=== PATIENT | male | born 1990 | race African-American/Black ===

== ENCOUNTER → 2020-11-18 10:33 | Outpatient (BNVA) | payer OTHER, SELFPAY | PROVIDERS: PCP Internal Medicine; Visit Provider Nurse Practitioner Gerontology ==

== ENCOUNTER 2021-02-11 09:49 | Outpatient (REF) | payer OTHER, SELFPAY ==
[2021-02-13 04:25] LABS: HBS Num1 225.82 mIU/mL (0-7.99); ~Hepatitis B Surface Antibody REACTIVE (Nonreactive)
== END 2021-02-11 09:50 | disposition home or self-care (01) ==
LOC: HO.HMGCLDS 09:49
PROVIDERS: PCP Internal Medicine; Visit Provider Nurse Practitioner Gerontology
DX: Z01.84 Encounter for antibody response examination (principal)
CPT/HCPCS: 36415; 86706; 86735; 86762; 86765; 86787

== ENCOUNTER 2021-03-06 12:16 | Outpatient (REF) | payer OTHER, SELFPAY ==
[2021-03-08 21:17] LABS: TS Negative Control Passed; TS Panel A 0; TS Panel B 0; TS Positive Control Passed; TSpotTB Negative (Negative)
== END 2021-03-06 12:17 | disposition home or self-care (01) ==
LOC: HO.HMGCLDS 12:16
PROVIDERS: PCP Internal Medicine; Visit Provider Internal Medicine
DX: Z11.1 Encounter for screening for respiratory tuberculosis (principal)
CPT/HCPCS: 36415; 86481

== ENCOUNTER → 2021-05-19 10:25 | Outpatient (BNVA) | payer OTHER, SELFPAY | PROVIDERS: PCP Internal Medicine; Visit Provider Nurse Practitioner Gerontology ==

== ENCOUNTER 2021-08-29 08:57 | Outpatient (REF) | payer OTHER, SELFPAY ==
[2021-08-29 11:53] LABS: Alanine Aminotransferase 20 U/L (0-40); Albumin Level 4.3 g/dL (3.5-5.0); Alkaline Phosphatase 93 U/L (39-117); Anion Gap 12 (12-20); Aspartate Amino Transferase 18 U/L (5-37); Bilirubin Total 0.6 mg/dL (0.0-1.0); Blood Urea Nitrogen 14 mg/dL (9-16); Calcium 9.2 mg/dL (8.4-10.2); Carbon Dioxide 28 mmol/L (22-29); Chloride 106 mmol/L (96-108); Cholesterol 148 mg/dL; Estimated Glomerular Filt Rate > 60; Glucose Fasting 100 mg/dL (60-99); HDL Cholesterol 54 mg/dL; LDL Cholesterol Calculated 87 mg/dl; Sodium 142 mmol/L (135-145); Total Protein 6.9 g/dL (6.5-8.0); Triglycerides 37 mg/dL
[2021-08-29 12:10] LABS: Microalbum/Creatinine Ratio Ur 5.5 ug/mg cr
[2021-08-29 12:18] LABS: Estimated Average Glucose 189 mg/dL; Hemoglobin A1c % 8.2 %
== END 2021-08-29 08:58 | disposition home or self-care (01) ==
LOC: HO.HMGCLDS 08:57
PROVIDERS: PCP Internal Medicine; Visit Provider Nurse Practitioner Gerontology
DX: E10.65 Type 1 diabetes mellitus with hyperglycemia (principal)
CPT/HCPCS: 36415; 80053; 80061; 82043; 83036

== ENCOUNTER → 2022-02-01 13:38 | Outpatient (BNVA) | payer OTHER, SELFPAY | PROVIDERS: PCP Internal Medicine; Visit Provider Internal Medicine Endocrinology, Diabetes & Metabolism | DX: E10.65 Type 1 diabetes mellitus with hyperglycemia (principal); Z79.4 Long term (current) use of insulin; Z96.41 Presence of insulin pump (external) (internal) | CPT/HCPCS: 82947; 83036; 99202; 99214 ==

== ENCOUNTER 2022-03-13 15:12 | Outpatient (REF) | payer OTHER, SELFPAY ==
[2022-03-13 17:04] LABS: Glucose Random 99 mg/dL (60-115)
[2022-03-15 18:44] LABS: C Peptide 0.22 ng/mL (0.80-3.85)
[2022-03-21 15:18] LABS: Glutamic acid decarboxylase Ab >250 IU/mL (<5)
[2022-03-31 22:58] LABS: Islet Cell Antibody Screen POSITIVE (NEGATIVE); Islet Cell Antibody Titer 320 JDF units
== END 2022-03-13 15:13 | disposition home or self-care (01) ==
LOC: HO.HMGCLDS 15:12
PROVIDERS: PCP Internal Medicine; Visit Provider Internal Medicine Endocrinology, Diabetes & Metabolism
DX: E10.65 Type 1 diabetes mellitus with hyperglycemia (principal)
CPT/HCPCS: 36415; 82947; 84681; 86255; 86341

== ENCOUNTER 2023-02-18 12:53 | Outpatient (AMB) | payer OTHER, SELFPAY ==
--- NOTE | 2023-02-18 12:56 | A.OFFVIS_ITS ---
Intake Vital Signs 02/18/23 13:00 Height 5 ft 10 in Weight 159 lb 13.362 oz BMI 22.9 BP 102/70 Blood Pressure Location Rt brachial Position Sitting Pulse 83 Pulse Source Pulse Oximeter Intake Visit Reasons: dm Intake Note: Patient present today to follow up on Type 1 Diabetes Mellitus. Last Diabetic Eye exam: 05/22/2022 Last Podiatry Visit: Does not see a Telecommunication Lines Repairer Random Glucose: 76 mg/dl HgA1C: 8.1% Snowboard Designer Required: No Accompanied by: Self / Same As Patient Allergies N.K.D.A. Allergy (Unknown, Uncoded 02/18/23 13:01) none HPI HPI Comments History of Present Illness Details ?Patient is 32 yo male with DM type 1 diagnosed on 07/13/17.? Past medical? history: HLD Micro and macrovascular complications: no? complications Diabetes medications: Lantus 13 units, Humalog, I:C 18,? sensitivity 70, target 120, Uses chart. CGM: In the last 2 weeks average blood glucose 164 . 2% blood glucose low, 57% in target range of 70-180,32 % high and 8% very high. GMI 7.2 . A pattern shows hypoglycemia occurring primarily overnight Symptoms reported: denies? numbness, tingling, cramping in lower extremities Hypoglycemia: Rare Twice a week or less per month usually overnight . ? Feels shakey and weak when they occur. Treats with juice and crackers.? ? Hyperglycemia: denies urinary frequency, denies nocturia,denies? polydypsia Eye exam:? last 04/2022 [facility] Medical History Dyslipidemia Immunity status testing Type 1 diabetes mellitus with hyperglycemia Surgical History No history of previous surgery Family History Father Diabetes Household Members: Family Housing: House Patient Tobacco Use Status: Never used Tobacco e-Cigarette/Vaping Use: Never Used Current occupational status: other Current occupation: student Cognitive needs: No Hearing needs: No Vision needs: Yes Physical Exam Vital Signs: Last Vital Signs Pulse 83 11/27/23 13:00 BP 102/70 02/18/23 13:00 BMI result Body Mass Index 22.9 Absence of Cushingoid features. Absence of acromegalic features. Neck exam reveals nl size thyroid about 15 gms. No thyroid nodules palpable. No carotid bruits present. Lungs CTA. Heart S1 S2, Reg R/R. No M/R/ G. Skin exam reveals absence of vitiligo or acanthosis nigricans. Abdominal exam reveals Soft NT/ND with NA BS. No organomegaly present. Extrem Other: Visual exam of foot performed. No ulcerations or open lesions. No onchomycosis, no callouses.Pulses 2 + distally. Sensation intact to monofilament exam. Vib ratory sensation sensed 10 seconds in right, 10 seconds in left with 128 Hz tuning fork. He does have a small palpable soft mass in the right dorsum of the foot which appears to be either ganglia or lipoma like Results AMB Hemoglobin A1c AMB Hemoglobin A1c 8.1 % Last Edit by AILIN Diaz on 02/18/23 13:17 Results Reviewed Results Reviewed: Laboratory Last Values Glucose (Clinic) 76 mg/dL (60-115) 02/18/23 13:05 Assessment & Plan Assessment & Plan (1) Type 1 diabetes mellitus with hyperglycemia: Code(s): E10.65 - Type 1 diabetes mellitus with hyperglycemia Plan: This is a 32-year-old black male with a history of type 1 diabetes with fair glycemic control on basal-bolus insulin with no known microvascular or macrovascular complications Plan is to talk to the patient about potentially switching to insulin pump like Omnipod 5 otr Tandem T-Slim X2 with control IQ.or Ilet device. Will check lipid profile microalbumin to creatinine ratio. Will follow up with clinical systems educator to discuss pump initiation Orders: Orders AMB Hemoglobin A1c Today E10.65 - Type 1 diabetes mellitus with hyperglycemia Coding Level of Care Code Est Pt Level 4 (14669) Diagnoses Type 1 diabetes mellitus with hyperglycemia E10.65
[2023-02-18 13:00] VITALS: BP 102/70; PULSE 83; BMI 22.9
[2023-02-18 13:12] LABS: Glucose, Whole Blood 76 mg/dL (60-115)
== END 2023-02-18 13:35 | disposition home or self-care (01) ==
PROVIDERS: PCP Internal Medicine; Visit Provider Internal Medicine Endocrinology, Diabetes & Metabolism
DX: E10.65 Type 1 diabetes mellitus with hyperglycemia (principal)
CPT/HCPCS: 99214

== ENCOUNTER → 2023-02-18 12:53 | Outpatient (BNVA) | payer OTHER, SELFPAY | PROVIDERS: PCP Internal Medicine; Visit Provider Internal Medicine Endocrinology, Diabetes & Metabolism | DX: E10.65 Type 1 diabetes mellitus with hyperglycemia (principal); E78.5 Hyperlipidemia, unspecified; Z79.4 Long term (current) use of insulin; Z83.3 Family history of diabetes mellitus | CPT/HCPCS: 82947; 83036; 99212 ==

== ENCOUNTER 2023-03-01 11:00 | Outpatient (REF) | payer OTHER, SELFPAY ==
[2023-03-01 14:21] LABS: Anion Gap 9 (12-20); Blood Urea Nitrogen 15 mg/dL (9-16); Calcium 9.2 mg/dL (8.4-10.2); Carbon Dioxide 29 mmol/L (22-29); Chloride 105 mmol/L (96-108); Cholesterol 185 mg/dL (<200); Estimated Glomerular Filt Rate > 60; Glucose Random 132 mg/dL (60-115); HDL Cholesterol 59 mg/dL (>40); LDL Cholesterol Calculated 118 mg/dL (<100); Potassium 3.9 mmol/L (3.3-5.1); Sodium 139 mmol/L (135-145); Triglycerides 43 mg/dL (<150)
[2023-03-01 14:53] LABS: Creatinine Urine 419.26 mg/dL; Microalbum/Creatinine Ratio Ur 6.9 ug/mg cr (<30)
== END 2023-03-01 11:01 | disposition home or self-care (01) ==
LOC: HO.HMGCLDS 11:00
PROVIDERS: PCP Internal Medicine; Visit Provider Internal Medicine Endocrinology, Diabetes & Metabolism
DX: E10.65 Type 1 diabetes mellitus with hyperglycemia (principal)
CPT/HCPCS: 36415; 80048; 80061; 82043; 82570

== ENCOUNTER 2023-05-01 13:31 | Outpatient (AMB) | payer OTHER, SELFPAY ==
--- NOTE | 2023-05-01 13:58 | A.OFFPC_ITS ---
Vital Signs 05/01/23 13:59 Height 5 ft 10 in Weight 157 lb BMI 22.5 BP 110/80 Blood Pressure Location Rt brachial Position Sitting Pulse 62 Pulse Source Pulse Oximeter Pulse Oximetry (%) 99 Oxygen Delivery Method Room Air Intake Visit Reasons: Physical Exam Intake Note: Pt is here today for his PE Allergies N.K.D.A. Allergy (Unknown, Uncoded 03/06/24 17:32) none Medication List - Last Reconciled 03/06/24 by Demi Corona MD atorvastatin 40 mg PO DAILY blood sugar diagnostic (FreeStyle Lite Strips) 3-4 times a day glucagon 3 mg/actuation (Baqsimi) 3 mg intranasal ONCE 30 days glucose (Dex4 Glucose) 12 grams (3 x 4 gram) PO Q15M PRN insulin degludec (Tresiba FlexTouch U-200 insulin) 11 - 14 units (0.055 - 0.07 mL) subcut DAILY 30 days insulin lispro Inject up to 15 units subcutaneously as directed 5 times a day subcutaneously; lancets (FreeStyle Lancets) 5 times a day Lantus Solostar U-100 Insulin (insulin glargine) 9 - 30 units (0.09 - 0.3 mL) subcut QPM 90 days NS Tobacco use date assessed: 05/01/23 Dental Screening Dental Screen Date: 05/01/23 Did you have a dental visit in the last 12 months?: No Was dental information given to patient?: Patient has dentist HPI Physical Exam HPI Details 33 year-old male here today for physical exam. He has type 1 diabetes mellitus, and dyslipidemia, currently being followed by endocrine clinic. He was diagnosed with type 1 diabetes mellitus in 2019, has fair glycemic control with last hemoglobin A1c [facility] at [facility] at 8.1%. He is currently on Lantus and Humalog insulin time and is under discussion with steam press tender about starting insulin pump. He goes to the [facility] for his diabetes retinopathy screening, last exam was done in 04/2022 with no diabetic retinopathy seen. [facility] Medical History History of anemia Immunity status testing Dyslipidemia Type 1 diabetes mellitus with hyperglycemia Surgical History No history of previous surgery Family History Father Diabetes Social History Household Members: Family Housing: House Patient Tobacco Use Status: Never used Tobacco e-Cigarette/Vaping Use: Never Used Current occupational status: other Current occupation: student Cognitive needs: No Hearing needs: No Vision needs: Yes Questionnaire PHQ-9 Over the last 2 weeks, how often have you been bothered by any of the following problems? 1. Little interest or pleasure in doing things: not at all 2. Feeling down, depressed, or hopeless: not at all 3. Trouble falling or staying asleep, or sleeping too much: not at all 4. Feeling tired or having little energy: not at all 5. Poor appetite or overeating: not at all 6. Feeling bad about yourself - or that you are a failure or have let yourself or your family down: not at all 7. Trouble concentrating on things, such as reading the newspaper or watching television: not at all 8. Moving or speaking so slowly that other people could have noticed. Or the opposite - being so fidgety or restless that you have been moving around a lot more than usual: not at all 9. Thoughts that you would be better off or of hurting yourself in some way: not at all Total score: 0 Depression Screening Interpretation: Negative Depression Screening Done: Yes 16449 - PHQ-9 Billing: Yes Source: Developed by Drs. Niles Ambrose, Chely Plascencia, Issac Castillo and colleagues, with an educational veronica from [employer]. Thrive Questionnaire Date Thrive assessed: 05/01/23 I am a: Patient What is your living situation today?: I have a steady place to live Within the past 12 months, did the food you bought not last and you didn't have the money to get more?: Never true Within the past 12 months, did you worry whether your food would run out before you got money to buy more?: Never true Do you have trouble paying for medicines?: No Do you have trouble getting transportation to medical appointments?: No Do you have trouble paying your heating and electricity bill?: No Do you have trouble taking care of your child, family member or friend?: No Do you have trouble with day-to-day activities such as bathing, preparing meals, shopping, managing finances, etc.?: No Are you currently unemployed and looking for a job?: No Are you interested in more education?: No THRIVE Score: 0 AUDIT C Alcohol Use Questionnaire (AUDIT-C) 1. How often do you have a drink containing alcohol?: Never Total Score: 0 SIDNEY-7 AMB Questionnaire SIDNEY-7 Date SIDNEY - 7 assessed: 05/01/23 Feeling nervous, anxious, or on edge: 0 = Not at all Not being able to stop or control worryin = Not at all Worrying too much about different things: 0 = Not at all Trouble relaxin = Not at all Being so restless that it is hard to sit still: 0 = Not at all Becoming easily annoyed or irritable: 0 = Not at all Feeling afraid as if something awful might happen: 0 = Not at all Total SIDNEY-7 score (0-4 normal; 5-9 mild; 10-14 moderate; 15-21 severe): 0 Source: Developed by Drs. Niles Ambrose, Chely Plascencia, Issac Castillo and colleagues, with an educational veronica from [employer]. SIDNEY-7 Assessment Billing SIDNEY-7 Assessment Tool: SIDNEY-7 Assessment 75698 Review of Systems Const Denies fatigue, Denies headache(s), Denies weight gain and Denies weight loss Eyes Denies change in vision ENT Denies dizziness, Denies dry mouth, Denies headache(s), Denies nasal congestion, Denies disequilibrium and Denies post nasal drip Card Denies chest pain, Denies irregular heart rhythm, Denies palpitations and Denies dyspnea Resp Denies cough and Denies dyspnea GI Denies constipation, Denies heartburn and Denies diarrhea Denies dysuria and Denies urinary frequency Musc Denies muscle cramps, Denies muscle weakness, Denies numbness and Denies tin gling Skin/Breast Denies lesions and Denies rash Neuro Denies burning sensations, Denies dizziness, Denies headache(s), Denies numbness, Denies tingling, Denies paresthesias and Denies disequilibrium Psych Denies depression Endo Denies fatigue, Denies polydipsia, Denies polyuria and Denies palpitations [place]/Lymph Denies easy bruising Aller/Immun Reports no additional complaints Physical exam (Primary Care) Vital Signs: Last Vital Signs Pulse 62 05/01/23 13:59 BP 110/80 05/01/23 13:59 Pulse Ox 99 05/01/23 13:59 Oxygen Delivery Method Room Air 05/01/23 13:59 BMI result Body Mass Index 22.5 Tobacco/Smoking Status: Tobacco use Status Tobacco use date assessed 05/01/23 05/01/23 14:04 Patient Tobacco Use Status Never used Tobacco 05/01/23 13:58 e-Cigarette/Vaping Use Never Used 05/01/23 13:58 PHQ-9: PHQ-9 Score PHQ-9: Total score 0 05/01/23 14:50 Depression Screening Interpretation: Negative Thrive Assessment: Date of Thrive Assessment Date Thrive assessed 05/01/23 05/01/23 14:46 Const General: comfortable, no acute distress and alert Orientation/consciousness: patient oriented x3 HENMT Ears: external ears normal, TM's normal bilaterally and EAC's normal General nose exam: Normal external nose present and No nasal discharge present Mouth: Normal oral and palatal mucosa present, oropharynx normal and moist mucous membranes Eyes General: appearance normal, both eyes and all related structures Conjunctivae: conjunctivae normal Sclerae: sclerae normal Pupils: Equal, round and reactive pupils present EOM: EOMs intact bilaterally Neck Neck: Yes full ROM, Yes no lymphadenopathy and Yes supple Resp Effort & Inspection: normal respiratory effort and able to speak in complete sentences Auscultation: clear to auscultation bilaterally Cardio Rate: regular rate Rhythm: regular rhythm Heart sounds: S1 normal heart sound present and S2 normal heart sound present GI Palpation (GI): Soft to palpation, nontender and no masses Auscultation: normal bowel sounds Back/Spine/Pelvis Back: No back tenderness Skin General skin exam: no rashes or lesions noted Neuro General: patient oriented x3, gait normal, tone normal, moves all extremities, Normal light touch and pain sensation and no focal motor deficits Cranial nerves: Yes CN's II-XII intact bilaterally and Yes Equal, round and reactive pupils present Cognition (Neuro): normal cognition Extrem General: Yes full ROM, Yes no joint enlargement, Yes no clubbing, cyanosis or edema and Yes no calf tenderness Psych Appearance: grossly normal and well kempt Mental Status: mental status grossly normal Speech and movement: Normal speech and movement present Affect: normal affect Attitude: cooperative Thought process: Normal thought process present Thought content: Normal thought content present Office Procedures Flu Questionnaire Does the patient have a severe egg allergy?: No Does the patient have severe life threatening allergies?: No Does the patient have a fever or illness today?: No Has the patient ever had Guillain-[place] Syndrome?: No Has the patient ever had any past reaction to a flu shot?: No Immunizations flu vacc [id number] 6mos up(PF) 60 mcg(15 mcgx4)/0.5 mL IM syringe Performing Provider: Demi Corona MD Performing Location: [facility] Administered by: Di Fowler CMA on 05/01/23 14:45 Dose Route Admin Location Dispensed Lot Number Expiration Date NDC Design Specialist 0.5 mL IM Left Deltoid 0.5 mL [id number] 09/22/23 88931-705-34 [employer] VIS Given Date VIS Provided VIS Publication Date 05/01/23 Single Vaccine 20 Eligibility Eligibility Date Funding Source Not VFC Eligible 05/01/23 Private Results Reviewed Results Reviewed: Name: Conrado Rodriguez Age/Sex: 32/M : 1990 Unit#: [id number] Attend Dr: Niles Ruvalcaba MD Re03/01/23 Status: DEP REF Location: [facility] Disch: SPEC : [id number] MARCIN: 03/01/23 STATUS: COMP REQ : [id number] RECD: 03/01/23-[address]: Niles Ruvalcaba MD COMP: 03/01/23142 ENTERED: 03/01/23-[address]: Demi Corona MD ORDERED: BMP, Lipid Panel Test Result Flag Reference Sodium 139 135-145 mmol/L Potassium 3.9 3.3-5.1 mmol/L CL 105 96-108 mmol/L CO2 29 22-29 mmol/L Gap 9 L 12-20 BUN 15 9-16 mg/dL Creat 1.11 0.5-1.4 mg/dL EGFR > 60 NOTE: For -[place] individuals, multiply the result by 1.210. Chronic Kidney Disease: Estimated GFR < 60 mL/min/1.73m2 Severe Kidney Disease: Estimated GFR < 15 mL/min/1.73m2 Glucose, Random 132 H 60-115 mg/dL CA 9.2 8.4-10.2 mg/dL Triglyceride 43 <150 mg/dL Desirable Triglyceride: less than 150 mg/dL Borderline High Triglyceride 150-199 mg/dL High Triglyceride: 200-499 mg/dL Very High Triglyceride: greater than or equal to 5OO mg/dL Cholesterol 185 <200 mg/dL Desirable Cholesterol: less than 200 mg/dL Borderline High Cholesterol: 200-239 mg/dL High Cholesterol: greater than 239 mg/dL LDL Calculated 118 H <100 mg/dL Desirable LDL: less than 100 mg/dL Near Optimal/Above Optimal LDL: 110-129 mg/dL Borderline High LDL: 130-159 mg/dL High LDL: 160-189 mg/dL Very High LDL: greater than or equal to 190 mg/dL HDL 59 >40 mg/dL Desirable HDL: greater than 40 mg/dL Note: This HDL assay may give artificially low results in patients with liver disease. Name: Conrado Rodriguez Age/Sex: 32/M : 1990 Unit#: [id number] Attend Dr: Niles Ruvalcaba MD Re03/01/23 Status: DEP [facility] Disch: SPEC : [id number] MARCIN: 03/01/23 STATUS: COMP REQ : [id number] RECD: 03/01/[address]: Niles Ruvalcaba MD COMP: 03/01/231453 ENTERED: 03/01/23-[address] [facility] [address]: Demi Corona MD ORDERED: MICARU Test Result Flag Reference Creat, Ur 419.26 mg/dL Microalbumin Ur 29.0 mg/L Alb/Creat Ratio 6.9 <30 ug/mg cr Albumin/Creatinine Ratio Reference Ranges: Normal: < 30 ug/mg creatinine Microalbuminuria: 30 - 300 ug/mg creatinine Clinical Albuminuria: > 300 ug/mg creatinine Coding Level of Care Code Est Pt Prev Care 18-39y(57139) Diagnoses Annual visit for general adult medical examination with abnormal findings Z00.01 History of anemia Z86.2 Type 1 diabetes mellitus with hyperglycemia E10.65 Dyslipidemia E78.5 Additional Codes SIDNEY-7 Assessment Billing - SIDNEY-7 Assessment Tool: SIDNEY-7 Assessment 33562 ([id number])
[2023-05-01 13:59] VITALS: BP 110/80; PULSE 62; O2SAT 99; BMI 22.5
== END 2023-05-01 15:09 | disposition home or self-care (01) ==
PROVIDERS: PCP Internal Medicine; Visit Provider Internal Medicine
DX: Z00.01 Encounter for general adult medical examination with abnormal findings (principal); Z86.2 Personal history of diseases of the blood and blood-forming organs and certain disorders involving the immune mechanism; E10.65 Type 1 diabetes mellitus with hyperglycemia; E78.5 Hyperlipidemia, unspecified
CPT/HCPCS: 90471; 90686; 99499

== ENCOUNTER 2023-06-24 14:38 | Outpatient (AMB) | payer OTHER, SELFPAY ==
[2023-06-24 14:39] VITALS: BP 132/82; PULSE 106; BMI 22.5
--- NOTE | 2023-06-24 14:39 | MHC.OFFVIS ---
Intake Vital Signs 06/24/23 14:39 Height 5 ft 10 in Weight 156 lb 11.979 oz BMI 22.5 BP 132/82 Blood Pressure Location Lt brachial Position Sitting Pulse 106 H Pulse Source Pulse Oximeter Intake Visit Reasons: f/u Type 1 DM-confirmed Intake Note: Patient presents today to follow up on D1MT. Last Diabetic Eye exam:2021 Last Podiatry Visit: Doesn't have one Random Glucose: 207 mg/dl HgA1c: 7.4% Gravity Prospecting Operator Helper Required: No Accompanied by: Self / Same As Patient Allergies N.K.D.A. Allergy (Unknown, Uncoded 06/24/23 14:44) none HPI HPI Comments History of Present Illness Details ?Patient is 32 yo male with DM type 1 diagnosed on 07/13/17.? Past medical? history: HLD Micro and macrovascular complications: no? complications Diabetes medications: Lantus 13 units, Humalog, I:C 18,? sensitivity 70, target 120, Uses chart. CGM: In the last 2 weeks average blood glucose 154 . 5% blood glucose low, 62% in target range of 70-180,27 % high and 6% very high. GMI 7.0 . A pattern shows hypoglycemia occurring primarily overnight and after dinner Symptoms reported: denies? numbness, tingling, cramping in lower extremities Hypoglycemia: Rare Twice a week or less per month usually overnight . ? Feels shakey and weak when they occur. Treats with juice and crackers.? ? Hyperglycemia: denies urinary frequency, denies nocturia,denies? polydypsia Eye exam:? last visit 1 yr ago -needs to make appt REPLACED BY [facility] Medical History (Updated 05/01/23 @ 14:47 by Demi Corona MD) History of anemia Immunity status testing Dyslipidemia Type 1 diabetes mellitus with hyperglycemia Surgical History No history of previous surgery Family History Father Diabetes Social History Household Members: Family Housing: House Patient Tobacco Use Status: Never used Tobacco e-Cigarette/Vaping Use: Never Used Current occupational status: other Current occupation: student Cognitive needs: No Hearing needs: No Vision needs: Yes Physical Exam Vital Signs: Last Vital Signs Pulse 106 H 06/24/23 14:39 BP 132/82 06/24/23 14:39 BMI result Body Mass Index 22.5 Absence of Cushingoid features. Absence of acromegalic features. Neck exam reveals nl size thyroid about 15 gms. No thyroid nodules palpable. No carotid bruits present. Lungs CTA. Heart S1 S2, Reg R/R. No M/R/ G. Skin exam reveals absence of vitiligo or acanthosis nigricans. Abdominal exam reveals Soft NT/ND with NA BS. No organomegaly present. Extrem Other: Visual exam of foot performed. No ulcerations or open lesions. No onchomycosis, no callouses.Pulses 2 + distally. Sensation intact to monofilament exam. Vibratory sensation sensed 10 seconds in right, 10 seconds in left with 128 Hz tuning fork. He does have a small palpable soft mass in the right dorsum of the foot which appears to be either ganglia or lipoma like Results AMB Hemoglobin A1c AMB Hemoglobin A1c 7.4 % Last Edit by AILIN Sutherland on 06/24/23 14:58 Results Reviewed Results Reviewed: Laboratory Last Values Glucose (Clinic) 207 mg/dL (60-115) H 06/24/23 14:46 Assessment & Plan Assessment & Plan (1) Type 1 diabetes mellitus with hyperglycemia: Code(s): E10.65 - Type 1 diabetes mellitus with hyperglycemia Plan: This is a 32-year-old black male with a history of type 1 diabetes with excellent glycemic control on basal-bolus insulin with no known microvascular or macrovascular complications Plan is to talk to the patient about potentially switching to insulin pump like Omnipod 5 otr Tandem T-Slim X2 with control IQ.or Ilet device. Will follow up with hatchery helper to discuss pump initiation For now, we will decrease Lantus to 11 units and loosen insulin: Carbohydrate 1:19 before dinner. Orders: Orders AMB Hemoglobin A1c Today E10.65 - Type 1 diabetes mellitus with hyperglycemia, Z13.9 - Encounter for screening, unspecified Coding Level of Care Code Est Pt Level 4 (53573) Diagnoses Type 1 diabetes mellitus with hyperglycemia E10.65
[2023-06-24 14:50] LABS: Glucose, Whole Blood 207 mg/dL (60-115)
== END 2023-06-24 15:16 | disposition home or self-care (01) ==
PROVIDERS: PCP Internal Medicine; Visit Provider Internal Medicine Endocrinology, Diabetes & Metabolism
DX: Z13.9 Encounter for screening, unspecified (principal); E10.65 Type 1 diabetes mellitus with hyperglycemia
CPT/HCPCS: 99214

== ENCOUNTER → 2023-06-24 14:38 | Outpatient (BNVA) | payer OTHER, SELFPAY | PROVIDERS: PCP Internal Medicine; Visit Provider Internal Medicine Endocrinology, Diabetes & Metabolism | DX: E10.65 Type 1 diabetes mellitus with hyperglycemia (principal); Z79.4 Long term (current) use of insulin | CPT/HCPCS: 82947; 83036; 99212 ==

== ENCOUNTER 2023-12-25 14:39 | Outpatient (AMB) | payer OTHER, SELFPAY ==
--- NOTE | 2023-12-25 08:03 | A.OFFVIS_ITS ---
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 Allergy (Unknown, Uncoded 12/25/23 14:50) none HPI Comments Details: Patient is 33 yo male with DM type 1 diagnosed on 07/13/17.? Patient presented to the clinic with blood sugar of 54 and was treated with 3 glucose tablets and 2 small cancer elie stephanie with his blood sugar increasing to 85 Past medical? history: HLD Micro and macrovascular complications: no? complications Diabetes medications: Lantus 11-14 units, Humalog, I:C 18,? sensitivity 70, target 120, Uses chart. Dexcom average glucose: [161 ] 14 day continuous glucose monitor report reviewed TIme in ranges: Eight % very high (above 250) 27 % high ?(181-250) 62 next just feel to % in range ?(70-180] Two % low (69-55) 1 % ?very low (below 54) Interpretation [labile readings with progressive increase of sugar throughout the day and some lows ] Eye exam:? last visit 1 yr ago -needs to make appt HLD: on statin due for lipid profile No neuropathy:Symptoms reported: denies? numbness, tingling, cramping in lower extremities No nephropathy: 03/16 microalbumin 29 eGFR >60 Hypoglycemia: Twice a week . ? Feels shaky and weak when they occur. Treats with juice and crackers.? ? Hyperglycemia: denies urinary frequency, denies nocturia,denies? polydypsia Eye exam:? last visit 1 yr ago -needs to make appt [facility] Medical History History of anemia Immunity status testing Dyslipidemia Type 1 diabetes mellitus with hyperglycemia Surgical History No history of previous surgery Family History Father Diabetes Social History Household Members: Family Housing: House Patient Tobacco Use Status: Never used Tobacco e-Cigarette/Vaping Use: Never Used Current occupational status: other Current occupation: student Cognitive needs: No Hearing needs: No Vision needs: Yes Physical Exam Vital Signs: Last Vital Signs Pulse 79 12/25/23 14:51 BP 120/78 12/25/23 14:51 BMI result Body Mass Index 22.1 Const Other: Absence of Cushingoid features. Absence of acromegalic features. Neck exam reveals nl size thyroid about 15 gms. No thyroid nodules palpable. No carotid bruits present. Lungs CTA. Heart S1 S2, Reg R/R. No M/R G. Skin exam reveals absence of vitiligo or acanthosis nigricans. No edema Visual exam of foot performed. No ulcerations or open lesions. No inter digit maceration or fissuring. No onychomycosis, no callouses. Sensation intact to monofilament exam. Vibratory sensation is normal with 128 Hz tuning fork. Results AMB Hemoglobin A1c AMB Hemoglobin A1c 8.0 % Last Edit by AILIN Yang on 12/25/23 15:18 Results Reviewed Results Reviewed: Laboratory Last Values Glucose (Clinic) 74 mg/dL (60-115) 12/25/23 15:49 Hgb A1c (Clinic) 8.0 % (4.0-6.0) H 12/25/23 14:51 Laboratory Tests 03/14/18 02/18/23 03/01/23 10:21 13:10 11:04 Plt Count 231 Potassium 3.9 Creatinine 1.11 Estimated GFR > 60 Hgb A1c (Clinic) 8.1 H Calcium 9.2 Triglycerides 43 Cholesterol 185 LDL Cholesterol, Calc 118 H HDL Cholesterol 59 Urine Creatinine Urine Microalbumin Microalb/Creat Ratio 03/01/23 06/24/23 11:10 14:49 Plt Count Potassium Creatinine Estimated GFR Hgb A1c (Clinic) 7.4 H Calcium Triglycerides Cholesterol LDL Cholesterol, Calc HDL Cholesterol Urine Creatinine 419.26 Urine Microalbumin 29.0 Microalb/Creat Ratio 6.9 Assessment & Plan Assessment & Plan (1) Type 1 diabetes mellitus with hyperglycemia: Code(s): E10.65 - Type 1 diabetes mellitus with hyperglycemia Category: Medical Plan: This is a 32-year-old black male with a history of type 1 diabetes with lows and A 1C above target at 8%. Needs better control on basal-bolus insulin. no known microvascular or macrovascular complications he will continue using Dexcom in the same about of pre meal insulin based on his insulin to carbohydrate ratio and correction factor. We will change his insulin to Tresiba as I believe this will give him a more even baseline of insulin and allow us to better adjust his insulin to achieve target at 7%n Orders: Orders AMB Hemoglobin A1c Today E10.65 - Type 1 diabetes mellitus with hyperglycemia Basic Metabolic Panel 2 Weeks E10.65 - Type 1 diabetes mellitus with hyperglycemia Lipid Panel 2 Weeks E10.65 - Type 1 diabetes mellitus with hyperglycemia Microalbumin, Random (w Creat) 2 Weeks E10.65 - Type 1 diabetes mellitus with hyperglycemia Creatinine Urine 2 Weeks E10.65 - Type 1 diabetes mellitus with hyperglycemia Medications: New insulin degludec (Tresiba FlexTouch U-200 insulin) 11 - 14 units (0.055 - 0.07 mL) subcut DAILY 30 days 3 mL 0RF Coding Level of Care Code Est Pt Level 5 (98462) Complex EM visit Add On G2211 Diagnoses Type 1 diabetes mellitus with hyperglycemia E10.65 Time Spent (min) 45 Comment Time spent reviewing labs/provider notes, face to face, chart doc
[2023-12-25 14:51] VITALS: BP 120/78; PULSE 79; BMI 22.1
[2023-12-25 15:12] LABS: Glucose, Whole Blood 50 mg/dL (60-115)
[2023-12-25 15:56] LABS: Glucose, Whole Blood 74 mg/dL (60-115)
[2023-12-26 07:28] LABS: Glucose, Whole Blood 85 mg/dL (60-115)
== END 2023-12-25 16:04 | disposition home or self-care (01) ==
LOC: HO.ENCR 14:39
PROVIDERS: PCP Internal Medicine; Visit Provider Nurse Practitioner Adult Health
DX: E10.65 Type 1 diabetes mellitus with hyperglycemia (principal)
CPT/HCPCS: 99215; G2211

== ENCOUNTER → 2023-12-25 14:39 | Outpatient (BNVA) | payer OTHER, SELFPAY | PROVIDERS: PCP Internal Medicine; Visit Provider Nurse Practitioner Adult Health | DX: E10.65 Type 1 diabetes mellitus with hyperglycemia (principal); Z79.4 Long term (current) use of insulin | CPT/HCPCS: 82947; 83036; 99212 ==

== ENCOUNTER 2024-03-19 15:14 | Outpatient (AMB) | payer OTHER, SELFPAY ==
--- NOTE | 2024-03-19 15:20 | A.OFFPC_ITS ---
Vital Signs 03/19/24 15:21 Height 5 ft 10 in Weight 156 lb BMI 22.4 BP 116/72 Blood Pressure Location Lt brachial Position Sitting Pulse 72 Pulse Source Pulse Oximeter Pulse Oximetry (%) 99 Oxygen Delivery Method Room Air Intake Visit Reasons: Cough Follow-up Intake Note: Pt is here today c/o dry cough Allergies N.K.D.A. Allergy (Unknown, Uncoded 03/06/24 17:32) none Medication List - Last Reconciled 03/19/24 by Demi Corona MD atorvastatin 40 mg PO DAILY blood sugar diagnostic (FreeStyle Lite Strips) 3-4 times a day glucagon 3 mg/actuation (Baqsimi) 3 mg intranasal ONCE 30 days glucose (Dex4 Glucose) 12 grams (3 x 4 gram) PO Q15M PRN insulin degludec (Tresiba FlexTouch U-200 insulin) 11 - 14 units (0.055 - 0.07 mL) subcut DAILY 30 days insulin lispro Inject up to 15 units subcutaneously as directed 5 times a day subcutaneously; lancets (FreeStyle Lancets) 5 times a day Tobacco use date assessed: 03/19/24 Dental Screening Dental Screen Date: 05/01/23 HPI Cough Follow-up HPI Details - The patient is a 33-year-old male pres enting with chronic cough; onset approximately two months ago - Cough is dry, mostly non-productive wi th occasional nasal congestion; no fever, wheezing, or runny nose - Cough is intermittent, more frequently occurs at night while lying down - No significant escalation in symptoms; patient suspects allergies as a potential cause - Patient manages Type 1 diabetes with i nsulin therapy; transitioned from Lantus to Tresiba, followed at [facility] endocrine clinic - Reports recent anxiety, particularly r elated to stress of academic testing - Occasional episodes of hypoglycemia no bonnie with associated anxiety-like symptoms PFSH Medical History History of anemia Immunity status testing Dyslipidemia Type 1 diabetes mellitus with hyperglycemia Surgical History No history of previous surgery Family History Father Diabetes Social History Household Members: Family Housing: House Patient Tobacco Use Status: Never used Tobacco e-Cigarette/Vaping Use: Never Used Current occupational status: other Current occupation: student Cognitive needs: No Hearing needs: No Vision needs: Yes Questionnaire PHQ-9 Over the last 2 weeks, how often have you been bothered by any of the following problems? 1. Little interest or pleasure in doing things: not at all 2. Feeling down, depressed, or hopeless: not at all 3. Trouble falling or staying asleep, or sleeping too much: not at all 4. Feeling tired or having little energy: not at all 5. Poor appetite or overeating: not at all 6. Feeling bad about yourself - or that you are a failure or have let yourself or your family down: not at all 7. Trouble concentrating on things, such as reading the newspaper or watching television: not at all 8. Moving or speaking so slowly that other people could have noticed. Or the opposite - being so fidgety or restless that you have been moving around a lot more than usual: not at all 9. Thoughts that you would be better off or of hurting yourself in some way: not at all Total score: 0 Depression Screening Interpretation: Negative Depression Screening Done: Yes 36034 - PHQ-9 Billing: Yes Source: Developed by Drs. Niles Ambrose, Chely Plascencia, Issac Castillo and colleagues, with an educational veronica from [employer]. Thrive Questionnaire Date Thrive assessed: 05/01/23 I am a: Patient What is your living situation today?: I have a steady place to live Within the past 12 months, did the food you bought not last and you didn't have the money to get more?: Never true Within the past 12 months, did you worry whether your food would run out before you got money to buy more?: Never true Do you have trouble paying for medicines?: No Do you have trouble getting transportation to medical appointments?: No Do you have trouble paying your heating and electricity bill?: No Do you have trouble taking care of your child, family member or friend?: No Do you have trouble with day-to-day activities such as bathing, preparing meals, shopping, managing finances, etc.?: No Are you currently unemployed and looking for a job?: I choose not to answer this question Are you interested in more education?: I choose not to answer this question Please select the resources that you would like help with: None Currently or been in a relationship where the following occur: No concerns reported THRIVE Score: 0 AUDIT C Alcohol Use Questionnaire (AUDIT-C) 1. How often do you have a drink containing alcohol?: Never Total Score: 0 SIDNEY-7 AMB Questionnaire SIDNEY-7 Date SIDNEY - 7 assessed: 03/19/24 Feeling nervous, anxious, or on edge: 1 = Several days Not being able to stop or control worryin = Not at all Worrying too much about different things: 1 = Several days Trouble relaxin = Several days Being so restless that it is hard to sit still: 0 = Not at all Becoming easily annoyed or irritable: 0 = Not at all Feeling afraid as if something awful might happen: 0 = Not at all Total SIDNEY-7 score (0-4 normal; 5-9 mild; 10-14 moderate; 15-21 severe): 3 Source: Developed by Drs. Niles Ambrose, Chely Plascencia, Issac Castillo and colleagues, with an educational veronica from [employer]. SIDNEY-7 Assessment Billing SIDNEY-7 Assessment Tool: SIDNEY-7 Assessment 89377 Review of Systems Const Denies fatigue, Denies headache(s), Denies weight gain and Denies weight loss Eyes Denies change in vision ENT Denies dizziness, Denies dry mouth, Denies headache(s), Reports nasal congestion, Denies disequilibrium, Reports post nasal drip, Denies sinus pain, Denies sinus pressure and Denies sore throat Card Denies chest pain, Denies irregular heart rhythm and Denies palpitations Resp Denies cough GI Denies constipation, Denies heartburn and Denies diarrhea Denies dysuria and Denies urinary frequency Musc Denies muscle cramps, Denies muscle weakness, Denies numbness and Denies tingling Skin/Breast Denies lesions and Denies rash Neuro Denies burning sensations, Denies dizziness, Denies headache(s), Denies numbness, Denies tingling, Denies paresthesias and Denies disequilibrium Psych Reports as per HPI and Denies depression Endo Denies fatigue, Denies polydipsia, Denies polyuria and Denies palpitations [place]/Lymph Denies easy bruising Aller/Immun Reports no additional complaints Physical exam (Primary Care) Vital Signs: Last Vital Signs Pulse 72 03/19/24 15:21 BP 116/72 03/19/24 15:21 Pulse Ox 99 03/19/24 15:21 Oxygen Delivery Method Room Air 03/19/24 15:21 BMI result Body Mass Index 22.4 Tobacco/Smoking Status: Tobacco use Status Tobacco use date assessed 03/19/24 03/19/24 15:24 Patient Tobacco Use Status Never used Tobacco 03/19/24 15:24 e-Cigarette/Vaping Use Never Used 03/19/24 15:24 PHQ-9: PHQ-9 Score PHQ-9: Total score 0 03/19/24 15:49 Depression Screening Interpretation: Negative Thrive Assessment: Date of Thrive Assessment Date Thrive assessed 05/01/23 03/19/24 15:24 Currently or been in a relationship where the following occur: No concerns reported Const General: comfortable, no acute distress and alert Orientation/consciousness: patient oriented x3 HENMT Ears: external ears normal, TM's normal bilaterally and EAC's normal General nose exam: Normal external nose present and No nasal discharge present Mouth: Normal oral and palatal mucosa present, oropharynx normal and moist mucous membranes Eyes General: appearance normal, both eyes and all related structures Neck Neck: Yes full ROM, Yes no lymphadenopathy and Yes supple Resp Effort & Inspection: normal respiratory effort and able to speak in complete sentences Auscultation: clear to auscultation bilaterally Cardio Rate: regular rate Rhythm: regular rhythm Heart sounds: S1 normal heart sound present and S2 normal heart sound present GI Palpation (GI): Soft to palpation, nontender and no masses Auscultation: normal bowel sounds Back/Spine/Pelvis Back: No back tenderness Skin General skin exam: no rashes or lesions noted Neuro General: patient oriented x3, gait normal, tone normal, moves all extremities, Normal light touch and pain sensation and no focal motor deficits Cranial nerves: Yes CN's II-XII intact bilaterally Cognition (Neuro): normal cognition Extrem General: Yes full ROM, Yes no joint enlargement, Yes no clubbing, cyanosis or edema and Yes no calf tenderness Psych Appearance: grossly normal and well kempt Mental Status: mental status grossly normal Speech and movement: Normal speech and movement present Affect: normal affect Attitude: cooperative Thought process: Normal thought process present Thought content: Normal thought content present Office Procedures Flu Questionnaire Does the patient have a severe egg allergy?: No Does the patient have severe life threatening allergies?: No Does the patient have a fever or illness today?: No Has the patient ever had Guillain-[place] Syndrome?: No Has the patient ever had any past reaction to a flu shot?: No Immunizations Fluarix Triv [id number] (PF) 45 mcg (15 mcg x 3)/0.5 mL IM syringe Performing Provider: Demi Corona MD Performing Location: [facility] Administered by: Di Fowler CMA on 03/19/24 15:58 Dose Route Admin Location Dispensed Lot Number Expiration Date NDC Drafter Tool Design 0.5 mL IM Left Deltoid 0.5 mL [id number] 03/19/24 [id number] [employer] VIS Given Date VIS Provided VIS Publication Date 03/19/24 Single Vaccine 20 Eligibility Eligibility Date Funding Source Not [facility] Eligible 03/19/24 Private Coding Level of Care Code Est Pt Level 4 (46045) Diagnoses Generalized anxiety disorder F41.1 Cough R05.9 Needs flu shot Z23 Additional Codes SIDNEY-7 Assessment Billing - SIDNEY-7 Assessment Tool: SIDNEY-7 Assessment 49842 ([id number]) PHQ-9 - 37307 - PHQ-9 Billing: Yes ([id number]) Assessment & Plan Assessment & Plan (1) Generalized anxiety disorder: Code(s): F41.1 - Generalized anxiety disorder Category: Medical (2) Cough: Code(s): R05.9 - Cough, unspecified Category: Medical (3) Needs flu shot: Code(s): Z23 - Encounter for immunization Plan Today, I discussed with the patient the likelihood of allergic rhinitis as the cause of his chronic cough and recommended starting on loratadine daily. We also discussed potential anxiety management with escitalopram , will start on 5 mg once a day , emphasizing the importance of managing stressors to support overall health. The patient acknowledged that fluctuations in blood sugar levels could contribute to perceived anxiety symptoms, and agreed to track these occurrences. Vaccine updates were addressed, confirming the need for a flu shot and COVID booster with a recommended week interval to minimize reactions.Flu shot given today. I also gave guidance on monitoring symptoms and responded to questions about the use and benefits of prescribed treatments. Follow-up has been planned to assess treatment efficacy, with a telehealth option scheduled 4 weeks after starting escitalopram . Orders: Orders Influenza [id number] Immunization 03/19/24 Z23 - Encounter for immunization Medications: New escitalopram oxalate 5 mg PO DAILY 30 tabs 0RF loratadine (Allergy Relief (loratadine)) 10 mg PO DAILY 30 tabs 0RF
[2024-03-19 15:21] VITALS: BP 116/72; PULSE 72; O2SAT 99; BMI 22.4
== END 2024-03-19 15:58 | disposition home or self-care (01) ==
PROVIDERS: PCP Internal Medicine; Visit Provider Internal Medicine
DX: F41.1 Generalized anxiety disorder (principal); R05.9 Cough, unspecified; Z23 Encounter for immunization

== ENCOUNTER → 2024-03-19 15:14 | Outpatient (BNVA) | payer OTHER, SELFPAY | PROVIDERS: PCP Internal Medicine; Visit Provider Internal Medicine | DX: R05.3 Chronic cough (principal); E16.2 Hypoglycemia, unspecified; F41.1 Generalized anxiety disorder; Z23 Encounter for immunization | CPT/HCPCS: 90471; 90656; 96127; 99212 ==

== ENCOUNTER 2024-04-24 08:03 | Outpatient (AMB) | payer OTHER, SELFPAY ==
--- NOTE | 2024-04-24 08:01 | MHC.PC.OV ---
Intake Visit Reasons: Depression & Anxiety iphone [phone] Allergies N.K.D.A. Allergy (Unknown, Uncoded 04/24/24 08:21) none Medication List - Last Reconciled 04/24/24 by Demi Corona MD atorvastatin 40 mg PO DAILY blood sugar diagnostic (FreeStyle Lite Strips) 3-4 times a day escitalopram oxalate 5 mg PO DAILY glucagon 3 mg/actuation (Baqsimi) 3 mg intranasal ONCE 30 days glucose (Dex4 Glucose) 12 grams (3 x 4 gram) PO Q15M PRN insulin degludec (Tresiba FlexTouch U-200 insulin) 11 - 14 units (0.055 - 0.07 mL) subcut DAILY 30 days insulin lispro Inject up to 15 units subcutaneously as directed 5 times a day subcutaneously; lancets (FreeStyle Lancets) 5 times a day loratadine (Allergy Relief (loratadine)) 10 mg PO DAILY Tobacco use date assessed: 04/24/24 Dental Screening Dental Screen Date: 04/24/24 Did you have a dental visit in the last 12 months?: No Did you have a dental problem in the last 6 months where you did not have access to dental care?: No Was dental information given to patient?: Patient has dentist HPI Depression & Anxiety iphone [phone] HPI Details 33-year-old male with type 1 diabetes mellitus currently followed by endocrine clinic, here today for follow-up on his anxiety disorder. Denies any depressive symptoms. Currently taking escitalopram 5 mg 1 tablet daily which she states has been helping. Not seeing any therapist, does not feel the need for one at present. Tolerating escitalopram with no adverse reactions reported. [facility] Medical History History of anemia Dyslipidemia Type 1 diabetes mellitus with hyperglycemia Surgical History No history of previous surgery Family History Father Diabetes Social History Household Members: Family Housing: House Patient Tobacco Use Status: Never used Tobacco e-Cigarette/Vaping Use: Never Used Current occupational status: other Current occupation: student Cognitive needs: No Hearing needs: No Vision needs: Yes Questionnaire PHQ-9 Over the last 2 weeks, how often have you been bothered by any of the following problems? 1. Little interest or pleasure in doing things: not at all 2. Feeling down, depressed, or hopeless: not at all 3. Trouble falling or staying asleep, or sleeping too much: not at all 4. Feeling tired or having little energy: not at all 5. Poor appetite or overeating: not at all 6. Feeling bad about yourself - or that you are a failure or have let yourself or your family down: not at all 7. Trouble concentrating on things, such as reading the newspaper or watching television: not at all 8. Moving or speaking so slowly that other people could have noticed. Or the opposite - being so fidgety or restless that you have been moving around a lot more than usual: not at all 9. Thoughts that you would be better off or of hurting yourself in some way: not at all Total score: 0 Depression Screening Interpretation: Negative Depression Screening Done: Yes 80502 - PHQ-9 Billing: Yes Source: Developed by Drs. Niles Ambrose, Chely Plascencia, Issac Castillo and colleagues, with an educational veronica from [employer]. Thrive Questionnaire Date Thrive assessed: 04/24/24 I am a: Patient What is your living situation today?: I have a steady place to live Within the past 12 months, did the food you bought not last and you didn't have the money to get more?: Never true Within the past 12 months, did you worry whether your food would run out before you got money to buy more?: Never true Do you have trouble paying for medicines?: No Do you have trouble getting transportation to medical appointments?: No Do you have trouble paying your heating and electricity bill?: No Do you have trouble taking care of your child, family member or friend?: No Do you have trouble with day-to-day activities such as bathing, preparing meals, shopping, managing finances, etc.?: No Are you currently unemployed and looking for a job?: No Are you interested in more education?: No THRIVE Score: 0 AUDIT C Alcohol Use Questionnaire (AUDIT-C) 1. How often do you have a drink containing alcohol?: Monthly or less 2. How many drinks containing alcohol do you have on a typical day when you are drinking?: 1 or 2 3. How often do you have six or more drinks on one occasion?: Never Total Score: 1 SIDNEY-7 AMB Questionnaire SIDNEY-7 Date SIDNEY - 7 assessed: 04/24/24 Feeling nervous, anxious, or on edge: 0 = Not at all Not being able to stop or control worryin = Not at all Worrying too much about different things: 0 = Not at all Trouble relaxin = Not at all Being so restless that it is hard to sit still: 0 = Not at all Becoming easily annoyed or irritable: 0 = Not at all Feeling afraid as if something awful might happen: 0 = Not at all Total SIDNEY-7 score (0-4 normal; 5-9 mild; 10-14 moderate; 15-21 severe): 0 Source: Developed by Drs. Niles Ambrose, Chely Plascencia, Issac Castillo and colleagues, with an educational veronica from [employer]. SIDNEY-7 Assessment Billing SIDNEY-7 Assessment Tool: SIDNEY-7 Assessment 27639 Review of Systems Const Denies fatigue Card Denies chest pain, Denies irregular heart rhythm and Denies palpitations Resp Denies cough GI Denies constipation, Denies heartburn and Denies diarrhea Denies dysuria and Denies urinary frequency Musc Denies muscle cramps, Denies muscle weakness, Denies numbness and Denies tingling Neuro Denies burning sensations, Denies numbness, Denies tingling and Denies paresthesias Psych Reports no additional complaints Endo Denies fatigue, Denies polydipsia, Denies polyuria and Denies palpitations Physical exam (Primary Care) Tobacco/Smoking Status: Tobacco use Status Tobacco use date assessed 04/24/24 04/24/24 08:03 Patient Tobacco Use Status Never used Tobacco 04/24/24 08:03 e-Cigarette/Vaping Use Never Used 04/24/24 08:03 PHQ-9: PHQ-9 Score PHQ-9: Total score 0 04/24/24 08:24 Depression Screening Interpretation: Negative Thrive Assessment: Date of Thrive Assessment Date Thrive assessed 04/24/24 04/24/24 08:03 Telehealth Telehealth Telehealth Platform: [facility] Location of provider rendering services: practice address Location of patient: address on file Patient Identification confirmed using: Name, : Yes Telehealth method: video Patient verbally consented to treatment: Yes Patient verbally consented to billing insurance company: Yes Patient informed of any privacy concerns related to visit: Yes Minutes spent on Phone/Video with Pt.: 15 Coding Level of Care Code Tele Est Pt Level 3 (57700) Diagnoses Generalized anxiety disorder F41.1 Additional Codes PHQ-9 - 95294 - PHQ-9 Billing: Yes ([id number]) SIDNEY-7 Assessment Billing - SIDNEY-7 Assessment Tool: SIDNEY-7 Assessment 80389 ([id number]) Assessment & Plan Assessment & Plan (1) Generalized anxiety disorder: Code(s): F41.1 - Generalized anxiety disorder Category: Medical Plan: Currently stable controlled on escitalopram 5 mg per tablet taken once a day, will continue on present dose. Patient declines need to be seen by a therapist. Will see him for his physical as scheduled on 05/07/2024, reminded patient to get his fasting labs done Medications: Refilled escitalopram oxalate 5 mg PO DAILY 30 tabs 5RF
--- OUTSIDE RECORDS SUMMARY | 2024-04-24 08:05 | XMS_ITS | Encounter Summary ---
Author Organization [facility] Address [address] [place] [address] Phone Care Team Providers Care Reference Assistant Name Role Phone Niles Goldsmith Primary Care Provider [phone] Encounter Details Date Type Department Care Team (Late st Contact Info) Description 11/13/2010 Documentation [facility] [place] Family Medicine [address] [place], [place] [phone] Family Medicine, Physician [address] [place] [address] Social History Tobacco Use Types Packs/Day Years Used Date Smoking Tobacco: Never Assessed Sex and Gender Information Value Date Recorded Sex Assigned at Not on file Legal Sex Male 4:51 PM EDT Gender Identity Not on file Sexual Orientation Not on file documented as of this encounter Plan of Treatment Not on file documented as of this encounter Visit Diagnoses Not on filedocumented in this encounter Care Teams Reference Assistant Relationship Specialty Start Date End Date Niles Goldsmith [address] [place] [address] PCP - General 11/02/16 documented as of this encounter
--- OUTSIDE RECORDS SUMMARY | 2024-04-24 08:05 | XMS_ITS | Encounter Summary ---
Author Organization [facility] Address [address] [place] [address] Phone Care Team Providers Care Deer Farmer Name Role Phone Niles Golsdmith Primary Care Provider [phone] Encounter Details Date Type Department Care Team (Late st Contact Info) Description 11/13/2010 Documentation [facility] [place] [address] [place], [place] [phone] Family Medicine, Physician [address] [place] [address] Social History Tobacco Use Types Packs/Day Years [...] on filedocumented in this encounter Care Teams Deer Farmer Relationship Specialty Start Date End Date Niles Goldsmith [address] [place] [address] PCP - General 11/02/16 documented as of this encounter
--- OUTSIDE RECORDS SUMMARY | 2024-04-24 08:05 | XMS_ITS | Encounter Summary ---
Author Organization [facility] Address [address] [place] [address] Phone Care Team Providers Care Security Sales Manager Name Role Phone Niles Goldsmith Primary Care Provider [phone] Encounter Details Date Type Department Care Team (Late st Contact Info) Description 11/08/2016 Conversion Encounter [facility] [address] [place] [address] Social History Tobacco Use Types Packs/Day Years [...] on filedocumented in this encounter Care Teams Security Sales Manager Relationship Specialty Start Date End Date Niles Goldsmith [address] [place] [address] PCP - General 11/02/16 documented as of this encounter
--- OUTSIDE RECORDS SUMMARY | 2024-04-24 08:05 | XMS_ITS | Encounter Summary ---
Author Organization [facility] Address [address] [place] [address] Phone Care Team Providers Care Veterinary Medicine Scientist Name Role Phone Niles Goldsmith Primary Care Provider [phone] Encounter Details Date Type Department Care Team (Late st Contact Info) Description 11/14/2010 Documentation [facility] [place] [address] [place], [place] [phone] Family Medicine, Physician [address] [place] [address] Social History Tobacco Use Types Packs/Day Years [...] on filedocumented in this encounter Care Teams Veterinary Medicine Scientist Relationship Specialty Start Date End Date Nilse Goldsmith [address] [place] [address] PCP - General 11/02/16 documented as of this encounter
--- OUTSIDE RECORDS SUMMARY | 2024-04-24 08:05 | XMS_ITS | Clinical Summary ---
Author Organization [facility] Address [address] [place] [address] Phone Care Team Providers Care Telegraph Office Telephone Clerk Name Role Phone Niles Goldsmith Primary Care Provider [phone] Immunizations Name Administration Dates Next Due DTP 06/30/1992, 2,04/27/1991,02/23 DTaP 5 11/11/1995 Hep B, ped/adol 08/21/1995,01/16/1995,12/17/1994 Hib (PRP-T) 06/30/1992, 2,04/27/1991,02/23 Influenza, intranasal, trivalent 11/10/2010 MMR 11/11/1995,06/30/1992 Meningococcal Conj (Menactra) MCV4P 08/30/2005 OPV 11/11/1995, 3,04/27/1991,02/23 Td (adult) (MBL), 2 Lf tetan us toxoid, PF, adsorbed 11/12/2002 Tdap 07/15/2008 Family History Relation Name Status Comments Father Alive Father: Alive a nd well Mother Alive Mother: Alive a nd well Other Family history of Diabetes mellitus Sister 1 Alive Sister: Alive a nd well, Alive and well Sister 2 Alive Sister: Alive a nd well, Alive and well Social History Tobacco Use Types Packs/Day Years Used Date Smoking Tobacco: Never Assessed Sex and Gender Information Value Date Recorded Sex Assigned at Not on file Legal Sex Male 4:51 PM EDT Gender Identity Not on file Sexual Orientation Not on file Last Filed Vital Signs Vital Sign Reading Time Taken Comments Blood Pressure 116/72 11/10/2010 12:00 AM EDT Pulse - - Temperature 35.3 ??C (95.5 ??F) 10/12/2010 12:00 AM E DT Respiratory Rate - - Oxygen Saturation - - Inhaled Oxygen Concentration - - Weight 59.9 kg (132 lb) 11/10/2010 12:00 AM EDT Height 175.3 cm (5' 9 ) 11/10/2010 12:00 AM EDT Body Mass Index 19.49 11/10/2010 12:00 AM EDT Plan of Treatment Health Maintenance Due Date Last Done Comments Consider Men B Vaccine (1 of 2 - Bexsero 2-dose series) 2006 Varicella Vaccines (1 of 2 - 13+ 2-dose series) 12/08/2010 DTaP,Tdap,and Td Vaccines (7 - Td or Tdap) 07/15/2018 07/15/2008, 11/12/2002, 11/11/1995, Additional history exists Influenza Vaccines (#1) 2023 11/10/2010 COVID-19 Vaccine ( season) 2023 HIB Vaccines Completed 06/30/1992, 06/1991, 04/27/1991, Additional history exists Hepatitis B Vaccines Completed 08/21/1995, 01/16/1995, 12/17/1994 IPV Vaccines Completed 11/11/1995, 10/1992, 04/27/1991, Additional history exists MMR Vaccines Completed 11/11/1995, 06/30/1992 Meningococcal Vaccine Aged Out 08/30/2005 No jesus urvashi eligible based on patient's age to complete this topic HPV Vaccines Aged Out No longer eligi ble based on patient's age to complete this topic Hepatitis A Vaccines Aged Out No long er eligible based on patient's age to complete this topic Men B Vaccine Aged Out No longer elig ible based on patient's age to complete this topic Pneumococcal Vaccine Aged Out No long er eligible based on patient's age to complete this topic Care Teams Telegraph Office Telephone Clerk Relationship Specialty Start Date End Date Niles Goldsmith [address] [place] [address] PCP - General 11/02/16
--- OUTSIDE RECORDS SUMMARY | 2024-04-24 08:05 | XMS_ITS | Encounter Summary ---
Author Organization [facility] Address [address] [place] [address] Phone Care Team Providers Care Director Hris Name Role Phone Niles Goldsmith Primary Care Provider [phone] Encounter Details Date Type Department Care Team (Late st Contact Info) Description 11/13/2010 Documentation [place] Family Medicine [address] [place], [place] [phone] Family Medicine, Physician [address] [place] [address] Social History Tobacco Use Types Packs/Day Years [...] on filedocumented in this encounter Care Teams Director Hris Relationship Specialty Start Date End Date Niles Goldsmith [address] [place] [address] PCP - General 11/02/16 documented as of this encounter
== END 2024-04-24 08:33 | disposition home or self-care (01) ==
LOC: HO.HMCC 08:03
PROVIDERS: PCP Internal Medicine; Visit Provider Internal Medicine
DX: F41.1 Generalized anxiety disorder (principal)

== ENCOUNTER → 2024-04-24 08:03 | Outpatient (BNVA) | payer OTHER, SELFPAY | PROVIDERS: PCP Internal Medicine; Visit Provider Internal Medicine | DX: F41.1 Generalized anxiety disorder (principal) | CPT/HCPCS: 96127 ==

== ENCOUNTER 2024-05-14 14:03 | Outpatient (AMB) | payer OTHER, SELFPAY ==
--- NOTE | 2024-05-14 08:24 | A.OFFVIS_ITS ---
Vital Signs 05/14/24 14:08 Height 5 ft 10 in Weight 167 lb 8.821 oz BMI 24.0 BP 104/76 Blood Pressure Location Rt brachial Position Sitting Pulse 97 Pulse Source Pulse Oximeter Pulse Oximetry (%) 100 Oxygen Delivery Method Room Air Intake Visit Reasons: T1DM Intake Note: Patient presents today for a follow-up on Type 1 Diabetes Mellitus: Last Diabetic eye exam was on: DUE Last Podiatry exam was on: Does not see a Stone Driller Helper Most recent HbA1c: 7.9%, 05/14/2024 Random Glucose- 116 mg/dL, Today Chiller Tender Required: No Accompanied by: Self / Same As Patient Allergies N.K.D.A. Allergy (Unknown, Uncoded 05/14/24 14:08) none Medication List - Last Reconciled 05/14/24 by Jaylyn Lopez NP atorvastatin 40 mg PO DAILY blood sugar diagnostic (FreeStyle Lite Strips) 3-4 times a day escitalopram oxalate 5 mg PO DAILY glucagon 3 mg/actuation (Baqsimi) 3 mg intranasal ONCE 30 days glucose (Dex4 Glucose) 12 grams (3 x 4 gram) PO Q15M PRN insulin degludec (Tresiba FlexTouch U-200 insulin) 11 - 14 units (0.055 - 0.07 mL) subcut DAILY 30 days insulin lispro Inject up to 15 units subcutaneously as directed 5 times a day subcutaneously; lancets (FreeStyle Lancets) 5 times a day loratadine (Allergy Relief (loratadine)) 10 mg PO DAILY HPI Comments Details: Patient is 33 yo male with DM type 1 diagnosed on 07/13/17.? Hemoglobin A1c 05/14/2024 % He was last seen 12/25/23 with an A1c of 8% at which time his basal insulin was changed to Tresiba due to hypoglycemia and failure to achieve target A1C. Type 1 diabetes confirmed 2021 insulin antibody titer 320, SIDNEY greater than 250 Micro and macrovascular complications: no? complications Diabetes medications: Tresiba 14-16 units was using 12-14 in the past Humalog, I:C 18,? sensitivity 70, target 130, hasn't been using emmanuel humalog when self calculating uses 1:20 for ease of calculation range 3-4 units small meal avg 10 units 16units larger meal and higher sugars Dexcom average glucose: [ ] 14 day continuous glucose monitor report reviewed Glucose Managment indicator [ ] % Days with CGM data [ ] % TIme in ranges: [ ] % very high (above 250) [ ] % high ?(181-250) [ ] % in range ?(70-180] [ ] % low (69-55) [ ] % ?very low (below 54) [ ] Standard Deviation Interpretation [ ] Eye exam:? last exam has appt scheduled in July 2024 HLD: on statin due for lipid profile No neuropathy:Symptoms reported: denies? numbness, tingling, cramping in lower extremities No nephropathy: 03/16 microalbumin 29 eGFR >60 Hypoglycemia: some in the am when he takes extra Tresiba? Feels shaky and weak when they occur. Treats with juice and crackers.? ? Hyperglycemia: denies urinary frequency, denies nocturia,denies? polydypsia Diet: Exercise: Diabetes education; none recent [facility] Medical History History of anemia Dyslipidemia Type 1 diabetes mellitus with hyperglycemia Surgical History No history of previous surgery Family History Father Diabetes Social History Household Members: Family Housing: House Patient Tobacco Use Status: Never used Tobacco e-Cigarette/Vaping Use: Never Used Current occupational status: other Current occupation: student Cognitive needs: No Hearing needs: No Vision needs: Yes Physical Exam Vital Signs: Last Vital Signs Pulse 97 05/14/24 14:08 BP 104/76 05/14/24 14:08 Pulse Ox 100 05/14/24 14:08 Oxygen Delivery Method Room Air 05/14/24 14:08 BMI result Body Mass Index 24.0 Const Other: Absence of Cushingoid features. Absence of acromegalic features. Neck exam reveals nl size thyroid about 15 gms. No thyroid nodules palpable. No carotid bruits present. Lungs CTA. Heart S1 S2, Reg R/R. No M/R G. Skin exam reveals absence of vitiligo or acanthosis nigricans. No edema Visual exam of foot performed. No ulcerations or open lesions. No inter digit maceration or fissuring. No onychomycosis, no callouses. Sensation intact to monofilament exam. Vibratory sensation is normal with 128 Hz tuning fork. Office Procedures Glucose Monitoring Details Details: see hpi 23203 - Glucose monitoring, continuous-physician I&R Procedure code (CPT) selection complete Results AMB Hemoglobin A1c AMB Hemoglobin A1c 7.9 % Last Edit by AILIN Yang on 05/14/24 14:27 Assessment & Plan Assessment & Plan (1) Type 1 diabetes mellitus with hyperglycemia: Code(s): E10.65 - Type 1 diabetes mellitus with hyperglycemia Category: Medical Plan: This is a 33-year-old type 1 diabetic with no known micro/macrovascular complications. Most recent A1c 05/14/2024 7.9% Glucose management indicator based on last 2 weeks was 7.0 with 6% hypoglycemia which occurs overnight. He was asked not to increase his Tresiba be on 14 units. He will start using the bolus calculator emmanuel and that was installed on his phone today along with Dexcom clarity. He is considering either the Omnipod or islet insulin pump but is waiting for time when there is less going on in his life to make the change. Written handout on DKA was given He was reminded to discuss location and how/when to use nasal spray for low glucose The patient had an opportunity to ask questions regarding treatment plan. The patient expressed understanding and agreement with the above treatment plan. The patient is aware they should contact our office by phone for worsening glucose readings or for any low blood sugars which may warrant a change in diabetes medication. Compliance is encouraged with medications and any followup testing/consults which may have been ordered. Orders: Orders AMB Hemoglobin A1c Today E10.65 - Type 1 diabetes mellitus with hyperglycemia AMB Glucose Monitoring Today E10.65 - Type 1 diabetes mellitus with hyperglycemia Patient Instructions: Take 15 carb carbohydrate grams to treat a low sugar (3-4 glucose tablets, half a glass of juice or 15 carbohydrate grams of soft candy such as gummie snacks). Recheck your sugar in 15 minutes and re-treat again with 15 carbohydrate grams if low or still with symptoms. Do not drive a car or operate machinery if you do not know what your blood sugar is, if it is low or in excess of 300. Symptoms of DKA (diabetic ketoacidosis): early: frequent urination, dry mouth, fatigue, feeling ill, severe symptoms: ketones in the urine, abdominal pain, nausea, vomiting and weakness. It is important to hydrate with sugar free liquids every 15-30 minutes and bring the sugars down to normal levels. If you are moderate or severe with ketones or unable to bring glucose to less than 200, go to the emergency room. Check your feet daily looking for any signs of infection, drainage, redness, ulceration and seek medical attention if this occurs. Break in shoes gradually and do not wear open-toed shoes or walk stocking footed or barefooted. The patient was counseled to achieve a target A1C of 7% (154 avg). Fasting blood sugars should be 90-130 in the morning and less than 180 two hours after meals. Reviewed the relationship between poor diabetic control and the development of complications. Sick day management reviewed. Coding Level of Care Code Est Pt Level 5 (04357) Complex EM visit Add On G2211 Diagnoses Type 1 diabetes mellitus with hyperglycemia E10.65 CPT Codes Details - CPT: 01265 - Glucose monitoring, continuous-physician I&R ([id number]) Time Spent (min) 60 Comment Reviewing labs/provider notes, glucose sensor/pump reports, face to face, chart doc
[2024-05-14 14:08] VITALS: BP 104/76; PULSE 97; O2SAT 100; BMI 24.0
[2024-05-14 14:17] LABS: Glucose, Whole Blood 116 mg/dL (60-115)
--- OUTSIDE RECORDS SUMMARY | 2024-05-14 15:07 | XMS_ITS | Clinical Summary ---
Author Organization [facility] Address [address] [place] [address] Phone Care Team Providers Care [place] Leverman Name Role Phone Niles Goldsmith Primary Care Provider [phone] Immunizations Immunization Administration Dates Next Due DTP 06/30/1992, 2,04/27/1991,02/23 [...] Health Maintenance Due Date Last Done Comments Varicella Vaccines (1 of 2 - 13+ 2-dose series) 12/08/2010 DTaP,Tdap,and Td Vaccines (7 - Td or Tdap) 07/15/2018 07/15/2008, 11/12/2002, 11/11/1995, Additional history exists Influenza Vaccines (#1) 2023 11/10/2010 COVID-19 Vaccine ( - season) 2023 HIB Vaccines Completed 06/30/1992, 06/1991, [...] age to complete this topic Care Teams [place] Leverman Relationship Specialty Start Date End Date Niles Goldsmith [address] [place] [address] PCP - General 11/02/16
--- OUTSIDE RECORDS SUMMARY | 2024-05-14 15:07 | XMS_ITS | Encounter Summary ---
Author Organization [facility] Address [address] [place] [address] Phone Care Team Providers Care Political Analyst Name Role Phone Niles Goldsmith Primary Care Provider [phone] Encounter Details Date Type Department Care Team (Late st Contact Info) Description 11/13/2010 [place]ation [facility] [place] [address] [place], [place] [phone] Family Medicine, Physician [address] [place] [address] Social History Tobacco Use Types Packs/Day Years [...] on filedocumented in this encounter Care Teams Political Analyst Relationship Specialty Start Date End Date Niles Goldsmith [address] [place] [address] PCP - General 11/02/16 documented as of this encounter
--- OUTSIDE RECORDS SUMMARY | 2024-05-14 15:07 | XMS_ITS | Encounter Summary ---
Author Organization [facility] Address [address] [place] [address] Phone Care Team Providers Care Rotary Drier Operator Name Role Phone Niles Goldsmith Primary Care Provider [phone] Encounter Details Date Type Department Care Team (Late st Contact Info) Description 11/14/2010 [place] [facility] [place] [address] [place], [place] [phone] Family Medicine, Physician [address] [place] [address] Social History Tobacco Use Types Packs/Day Years [...] on filedocumented in this encounter Care Teams Rotary Drier Operator Relationship Specialty Start Date End Date Niles Goldsmith [address] [place] [address] PCP - General 11/02/16 documented as of this encounter
--- OUTSIDE RECORDS SUMMARY | 2024-05-14 15:07 | XMS_ITS | Encounter Summary ---
Author Organization [facility] Address [address] [place] [address] Phone Care Team Providers Care Land Appraiser Name Role Phone Niles Goldsmith Primary Care Provider Encounter Details Date Type Department Care Team (Late st Contact Info) Description 11/13/2010 Documentation [facility] [place] Family Medicine [address] [place], [place] [phone] Family Medicine, Physician [address] [place] [address] Social History Tobacco Use Types Packs/Day Years [...] on filedocumented in this encounter Care Teams Land Appraiser Relationship Specialty Start Date End Date Niles Goldsmith [address] [place] [address] PCP - General 11/02/16 documented as of this encounter
--- OUTSIDE RECORDS SUMMARY | 2024-05-14 15:07 | XMS_ITS | Encounter Summary ---
Author Organization [facility] Address [address] [place] [address] Phone Care Team Providers Care Shipping And Receiving Weigher Name Role Phone Niles Goldsmith Primary Care Provider [phone] Encounter Details Date Type Department Care Team (Late st Contact Info) Description 11/13/2010 Documentation [facility] Family Medicine [address] [place], [place] [phone] Family Medicine, Physician [address] [place] [address] Social History Tobacco Use Types Packs/Day Years [...] on filedocumented in this encounter Care Teams Shipping And Receiving Weigher Relationship Specialty Start Date End Date Niles Goldsmith [address] [place] [address] PCP - General 11/02/16 documented as of this encounter
--- OUTSIDE RECORDS SUMMARY | 2024-05-14 15:07 | XMS_ITS | Encounter Summary ---
Author Organization [facility] Address [address] [place] [address] Phone Care Team Providers Care Heading Pinner Name Role Phone Niles Goldsmith Primary Care Provider [phone] Encounter Details Date Type Department Care Team (Late st Contact Info) Description 11/08/2016 Conversion Encounter [facility] [address] [place] [address] Social History Tobacco Use Types Packs/Day Years [...] on filedocumented in this encounter Care Teams Heading Pinner Relationship Specialty Start Date End Date Niles Goldsmith [address] [place] [address] PCP - General 11/02/16 documented as of this encounter
== END 2024-05-14 14:54 | disposition home or self-care (01) ==
PROVIDERS: PCP Internal Medicine; Visit Provider Nurse Practitioner Adult Health
DX: E10.65 Type 1 diabetes mellitus with hyperglycemia (principal)
CPT/HCPCS: 95251; 99215; 99417; G2211

== ENCOUNTER → 2024-05-14 14:03 | Outpatient (BNVA) | payer OTHER, SELFPAY | PROVIDERS: PCP Internal Medicine; Visit Provider Nurse Practitioner Adult Health | DX: E10.65 Type 1 diabetes mellitus with hyperglycemia (principal) | CPT/HCPCS: 82947; 83036; 99212 ==

== ENCOUNTER 2024-06-02 10:00 | Outpatient (REF) | payer OTHER, SELFPAY ==
--- OUTSIDE RECORDS SUMMARY | 2024-06-02 11:38 | XMS_ITS | Encounter Summary ---
Author Organization [facility] Address [address] [place] [address] Phone Care Team Providers Care Telecom Manager Name Role Phone Niles Goldsmith Primary Care Provider [phone] Encounter Details Date Type Department Care Team (Late st Contact Info) Description 11/14/2010 Documentation [facility] [place] Family Medicine [address] [place], [place] [phone] Family Medicine, Physician [address] [place] [address] Social History Tobacco Use Types Packs/Day Years [...] on filedocumented in this encounter Care Teams Telecom Manager Relationship Specialty Start Date End Date Niles Goldsmith [address] [place] [address] PCP - General 11/02/16 documented as of this encounter
--- OUTSIDE RECORDS SUMMARY | 2024-06-02 11:38 | XMS_ITS | Encounter Summary ---
Author Organization [facility] Address [address] [place] [address] Phone Care Team Providers Care Knitting Machine Tender Name Role Phone Niles Goldsmith Primary Care Provider [phone] Encounter Details Date Type Department Care Team (Late st Contact Info) Description 11/13/2010 [place] [facility] [place] [address] [place], [place] [phone] Family Medicine, Physician [address] [place] [address] Social History Tobacco Use Types Packs/Day Years [...] on filedocumented in this encounter Care Teams Knitting Machine Tender Relationship Specialty Start Date End Date Niles Goldsmith [address] [place] [address] PCP - General 11/02/16 documented as of this encounter
--- OUTSIDE RECORDS SUMMARY | 2024-06-02 11:38 | XMS_ITS | Clinical Summary ---
Author Organization [facility] Address [address] [place] [address] Phone Care Team Providers Care Side Laster Name Role Phone Niles Goldsmith Primary Care Provider [phone] Immunizations Immunization Administration Dates Next Due DTP [...] age to complete this topic Care Teams Side Laster Relationship Specialty Start Date End Date Niles Goldsmith [address] [place] [address] PCP - General 11/02/16
--- OUTSIDE RECORDS SUMMARY | 2024-06-02 11:38 | XMS_ITS | Encounter Summary ---
Author Organization [facility] Address [address] [place] [address] Phone Care Team Providers Care Loader Name Role Phone Niles Goldsmith Primary Care Provider [phone] Encounter Details Date Type Department Care Team (Late st Contact Info) Description 11/08/2016 Conversion Encounter [facility] [address] [place] [address] Social History Tobacco Use Types Packs/Day Years [...] on filedocumented in this encounter Care Teams Loader Relationship Specialty Start Date End Date Niles Goldsmith [address] [place] [address] PCP - General 11/02/16 documented as of this encounter
--- OUTSIDE RECORDS SUMMARY | 2024-06-02 11:38 | XMS_ITS | Encounter Summary ---
Author Organization [facility] Address [address] [place] [address] Phone Care Team Providers Care Service Counter Cashier Name Role Phone Niles Goldsmith Primary Care Provider [phone] Encounter Details Date Type Department Care Team (Late st Contact Info) Description 11/13/2010 Documentation [facility] [place] Family Medicine [address] [place], [place] [phone] Family Medicine, Physician [address] [place] [address] Social History Tobacco Use Types Packs/Day Years [...] on filedocumented in this encounter Care Teams Service Counter Cashier Relationship Specialty Start Date End Date Niles Goldsmith [address] [place] [address] PCP - General 11/02/16 documented as of this encounter
--- OUTSIDE RECORDS SUMMARY | 2024-06-02 11:38 | XMS_ITS | Encounter Summary ---
Author Organization [facility] Address [address] [place] [address] Phone Care Team Providers Care Physician'S Assistant Name Role Phone Niles Goldsmith Primary Care Provider [phone] Encounter Details Date Type Department Care Team (Late st Contact Info) Description 11/13/2010 Documentation [facility] [place] [address] [place], [place] [id number] Family Medicine, Physician [address] [place] [address] Social History Tobacco Use Types Packs/Day Years [...] on filedocumented in this encounter Care Teams Physician'S Assistant Relationship Specialty Start Date End Date Niles Goldsmith [address] [place] [address] PCP - General 11/02/16 documented as of this encounter
[2024-06-02 14:02] LABS: Anion Gap 12 (12-20); Blood Urea Nitrogen 10 mg/dL (9-16); Calcium 9.5 mg/dL (8.4-10.2); Carbon Dioxide 28 mmol/L (22-29); Chloride 106 mmol/L (96-108); Cholesterol 170 mg/dL (<200); Estimated Glomerular Filt Rate > 60; Glucose Random 162 mg/dL (60-115); HDL Cholesterol 61 mg/dL (>40); LDL Cholesterol Calculated 99 mg/dL (<100); Potassium 4.5 mmol/L (3.3-5.1); Sodium 141 mmol/L (135-145); Triglycerides 51 mg/dL (<150)
[2024-06-02 14:25] LABS: Creatinine Urine 328.47 mg/dL; Microalbum/Creatinine Ratio Ur 3.9 ug/mg cr (<30)
== END 2024-06-02 10:01 | disposition home or self-care (01) ==
LOC: HO.HMGCLDS 10:00
PROVIDERS: PCP Internal Medicine; Visit Provider Nurse Practitioner Adult Health
DX: E10.65 Type 1 diabetes mellitus with hyperglycemia (principal)
CPT/HCPCS: 36415; 80048; 80061; 82043; 82570

== ENCOUNTER 2024-07-08 13:35 | Outpatient (AMB) | payer OTHER, SELFPAY ==
--- NOTE | 2024-07-08 14:18 | A.OFFPC_ITS ---
Vital Signs 07/08/24 14:24 Height 5 ft 10 in Weight 168 lb BMI 24.1 BP 110/70 Blood Pressure Location Rt brachial Position Sitting Respiration 16 Pulse 64 Pulse Source Pulse Oximeter Temp 98.1 F Temp Source Oral Pulse Oximetry (%) 100 Oxygen Delivery Method Room Air Intake Visit Reasons: Annual PE Intake Note: Pt is here today for his PE Allergies N.K.D.A. Allergy (Unknown, Uncoded 07/08/24 14:56) none Medication List - Last Reconciled 07/08/24 by Demi Corona MD atorvastatin 40 mg PO DAILY blood sugar diagnostic (FreeStyle Lite Strips) 3-4 times a day escitalopram oxalate 5 mg PO DAILY glucagon 3 mg/actuation (Baqsimi) 3 mg intranasal ONCE 30 days glucose (Dex4 Glucose) 12 grams (3 x 4 gram) PO Q15M PRN insulin degludec (Tresiba FlexTouch U-200 insulin) 11 - 14 units (0.055 - 0.07 mL) subcut DAILY 30 days insulin lispro Inject up to 15 units subcutaneously as directed 5 times a day subcutaneously; lancets (FreeStyle Lancets) 5 times a day loratadine (Allergy Relief (loratadine)) 10 mg PO DAILY Tobacco use date assessed: 07/08/24 Dental Screening Dental Screen Date: 07/08/24 Did you have a dental visit in the last 12 months?: No Did you have a dental problem in the last 6 months where you did not have access to dental care?: No Was dental information given to patient?: Patient has dentist HPI Annual PE HPI Details 33 year-old male with history of depress ion, dyslipidemia, and type 1 diabetes mellitus currently followed by endocrine clinic, here today for his physical exam. He is currently followed at endocrine clinic, with most recent A1c 05/14/2024 at 7.9%, noted to have 6% hypoglycemia occurring overnight, and continued on Tresiba at 14 units. He is considering either the Omnipod or islet insulin pump but is waiting for time when there is less going on in his life to make the change, as he is currently studying for his finals. Latest fasting labs showed normal electrolytes and renal function, lipid panel is at goal and no microalbuminuria seen. He is overdue however for his diabetes retinopathy screening. [facility] Medical History History of anemia Dyslipidemia Type 1 diabetes mellitus with hyperglycemia Surgical History No history of previous surgery Family History Father Diabetes Social History Household Members: Family Housing: House Patient Tobacco Use Status: Never used Tobacco e-Cigarette/Vaping Use: Never Used Current occupational status: other Current occupation: student Cognitive needs: No Hearing needs: No Vision needs: Yes Questionnaire PHQ-9 Over the last 2 weeks, how often have you been bothered by any of the following problems? 1. Little interest or pleasure in doing things: not at all 2. Feeling down, depressed, or hopeless: not at all 3. Trouble falling or staying asleep, or sleeping too much: not at all 4. Feeling tired or having little energy: several days 5. Poor appetite or overeating: not at all 6. Feeling bad about yourself - or that you are a failure or have let yourself or your family down: not at all 7. Trouble concentrating on things, such as reading the newspaper or watching television: not at all 8. Moving or speaking so slowly that other people could have noticed. Or the opposite - being so fidgety or restless that you have been moving around a lot more than usual: not at all 9. Thoughts that you would be better off or of hurting yourself in some way: not at all Total score: 1 Depression Screening Interpretation: Negative Depression Screening Done: Yes 82325 - PHQ-9 Billing: Yes Source: Developed by Drs. Niles Ambrose, Chely Plascencia, Issac Castillo and colleagues, with an educational veronica from [employer]. Thrive Questionnaire Date Thrive assessed: 07/08/24 I am a: Patient What is your living situation today?: I have a steady place to live Within the past 12 months, did the food you bought not last and you didn't have the money to get more?: Never true Within the past 12 months, did you worry whether your food would run out before you got money to buy more?: Never true Do you have trouble paying for medicines?: No Do you have trouble getting transportation to medical appointments?: No Do you have trouble paying your heating and electricity bill?: No Do you have trouble taking care of your child, family member or friend?: No Do you have trouble with day-to-day activities such as bathing, preparing meals, shopping, managing finances, etc.?: No Are you currently unemployed and looking for a job?: No Are you interested in more education?: I choose not to answer this question Please select the resources that you would like help with: None Currently or been in a relationship where the following occur: I choose not to answer THRIVE Score: 0 AUDIT C Alcohol Use Questionnaire (AUDIT-C) 1. How often do you have a drink containing alcohol?: Never Total Score: 0 SIDNEY-7 AMB Questionnaire SIDNEY-7 Date SIDNEY - 7 assessed: 04/24/24 Feeling nervous, anxious, or on edge: 0 = Not at all Not being able to stop or control worryin = Not at all Worrying too much about different things: 0 = Not at all Trouble relaxin = Several days Being so restless that it is hard to sit still: 0 = Not at all Becoming easily annoyed or irritable: 0 = Not at all Feeling afraid as if something awful might happen: 0 = Not at all Total SIDNEY-7 score (0-4 normal; 5-9 mild; 10-14 moderate; 15-21 severe): 1 Source: Developed by Drs. Niles Ambrose, Chely Plascencia, Issac Castillo and colleagues, with an educational veronica from [employer]. SIDNEY-7 Assessment Billing SIDNEY-7 Assessment Tool: SIDNEY-7 Assessment 67305 Review of Systems Const Denies fatigue and Denies headache(s) Eyes Denies change in vision ENT Denies dizziness, Denies dry mouth, Denies headache(s) and Denies nasal congestion Card Denies chest pain, Denies irregular heart rhythm and Denies palpitations Resp Denies cough GI Denies constipation, Denies heartburn and Denies diarrhea Denies dysuria and Denies urinary frequency Musc Denies muscle cramps, Denies muscle weakness, Denies numbness and Denies tingling Skin/Breast Denies lesions and Denies rash Neuro Denies burning sensations, Denies dizziness, Denies headache(s), Denies numbness, Denies tingling and Denies paresthesias Psych Reports no additional complaints Endo Denies fatigue, Denies polydipsia, Denies polyuria and Denies palpitations Quincy/Lymph Denies easy bruising Aller/Immun Reports no additional complaints Physical exam (Primary Care) Vital Signs: Last Vital Signs Temp 98.1 F 07/08/24 14:24 Pulse 64 07/08/24 14:24 Resp 16 07/08/24 14:24 BP 110/70 07/08/24 14:24 Pulse Ox 100 07/08/24 14:24 Oxygen Delivery Method Room Air 07/08/24 14:24 BMI result Body Mass Index 24.1 Tobacco/Smoking Status: Tobacco use Status Tobacco use date assessed 07/08/24 07/08/24 14:28 Patient Tobacco Use Status Never used Tobacco 07/08/24 14:18 e-Cigarette/Vaping Use Never Used 07/08/24 14:18 PHQ-9: PHQ-9 Score PHQ-9: Total score 2 07/08/24 15:09 Depression Screening Interpretation: Negative Thrive Assessment: Date of Thrive Assessment Date Thrive assessed 07/08/24 07/08/24 14:28 Currently or been in a relationship where the following occur: I choose not to answer Const General: comfortable, no acute distress and alert Orientation/consciousness: patient oriented x3 HENMT Ears: external ears normal, TM's normal bilaterally and EAC's normal General nose exam: Normal external nose present and No nasal discharge present Mouth: Normal oral and palatal mucosa present, oropharynx normal and moist mucous membranes Eyes General: appearance normal, both eyes and all related structures Neck Neck: Yes full ROM, Yes no lymphadenopathy and Yes supple Resp Effort & Inspection: normal respiratory effort and able to speak in complete sentences Auscultation: clear to auscultation bilaterally Cardio Rate: regular rate Rhythm: regular rhythm Heart sounds: S1 normal heart sound present and S2 normal heart sound present GI Palpation (GI): Soft to palpation, nontender and no masses Auscultation: normal bowel sounds General: Yes no CVA tenderness Male General Exam: Yes normal external exam Back/Spine/Pelvis Back: no CVA tenderness and No back tenderness Skin General skin exam: no rashes or lesions noted Neuro General: patient oriented x3, gait normal, tone normal, moves all extremities, Normal light touch and pain sensation and no focal motor deficits Cranial nerves: Yes CN's II-XII intact bilaterally Cognition (Neuro): normal cognition Extrem General: Yes full ROM, Yes no joint enlargement, Yes no clubbing, cyanosis or edema and Yes no calf tenderness Psych Appearance: grossly normal and well kempt Mental Status: mental status grossly normal Speech and movement: Normal speech and movement present Affect: normal affect Attitude: cooperative Thought process: Normal thought process present Thought content: Normal thought content present Results Reviewed Results Reviewed: Name: Conrado Rodriguez Age/Sex: 33/M : 1990 Unit#: [id number] Attend Dr: Jaylyn Lopez NP Re06/02/24 Status: DEP REF Location: [facility] Disch: SPEC : [id number] MARCIN: 06/02/24 STATUS: COMP REQ : [id number] RECD: 06/02/[address]: Jaylyn Lopez NP COMP: 06/02/24 ENTERED: 06/02/[address]: Demi Corona MD ORDERED: BMP, Lipid Panel Test Result Flag Reference Sodium 141 135-145 mmol/L Potassium 4.5 3.3-5.1 mmol/L CL 106 96-108 mmol/L CO2 28 22-29 mmol/L Gap 12 12-20 BUN 10 9-16 mg/dL Creat 1.07 0.5-1.4 mg/dL eGFR > 60 Chronic Kidney Disease: Estimated GFR < 60 mL/min/1.73m2 Severe Kidney Disease: Estimated GFR < 15 mL/min/1.73m2 Glucose, Random 162 H 60-115 mg/dL CA 9.5 8.4-10.2 mg/dL Triglyceride 51 <150 mg/dL Desirable Triglyceride: less than 150 mg/dL Borderline High Triglyceride 150-199 mg/dL High Triglyceride: 200-499 mg/dL Very High Triglyceride: greater than or equal to 5OO mg/dL Cholesterol 170 <200 mg/dL Desirable Cholesterol: less than 200 mg/dL Borderline High Cholesterol: 200-239 mg/dL High Cholesterol: greater than 239 mg/dL LDL Calculated 99 <100 mg/dL Desirable LDL: less than 100 mg/dL Near Optimal/Above Optimal LDL: 110-129 mg/dL Borderline High LDL: 130-159 mg/dL High LDL: 160-189 mg/dL Very High LDL: greater than or equal to 190 mg/dL HDL 61 >40 mg/dL Desirable HDL: greater than 40 mg/dL Note: This HDL assay may give artificially low results in patients with liver disease. Laboratory Tests 05/14/24 06/02/24 14:07 10:02 Hgb A1c (Clinic) 7.9 H Urine Creatinine 328.47 Urine Microalbumin 13.0 Microalb/Creat Ratio 3.9 Coding Level of Care Code Est Pt Prev Care 18-39y(96328) Diagnoses Annual visit for general adult medical examination with abnormal findings Z00.01 Type 1 diabetes mellitus with hyperglycemia E10.65 Dyslipidemia E78.5 Generalized anxiety disorder F41.1 Encounter for counseling regarding advance directives Z71.89 Additional Codes SIDNEY-7 Assessment Billing - SDINEY-7 Assessment Tool: SIDNEY-7 Assessment 10416 ([id number]) PHQ-9 - 50145 - PHQ-9 Billing: Yes ([id number]) Assessment & Plan Assessment & Plan (1) Annual visit for general adult medical examination with abnormal findings: Code(s): Z00.01 - Encounter for general adult medical examination with abnormal findings Plan: Fasting lab results reviewed with patient. Continue regular dental visit every 6 months and yearly eye exams, for diabetes retinopathy screening.. Take adequate calcium in diet and vitamin-D 3 at 2000 IU per cap once a day, in addition to weight-bearing exercises to help maintain good muscle tone and weight control. Instructed to do self-testicular exam check for any mass. He is up-to-date with his pneumococcal vaccination and Tdap, reminded to get yearly flu shot and COVID booster (2) Type 1 diabetes mellitus with hyperglycemia: Code(s): E10.65 - Type 1 diabetes mellitus with hyperglycemia Category: Medical Plan: currently followed at endocrine clinic, on Tresiba 14 units daily and considering either the Omnipod or islet insulin pump but is waiting for time when there is less going on in his life to make the change, as he is currently studying for his finals. Reminded to get his yearly diabetes retinopathy screening (3) Dyslipidemia: Code(s): E78.5 - Hyperlipidemia, unspecified Category: Medical Plan: Reviewed recent fasting lipid profile with patient with levels at goal . Continue atorvastatin 40 mg daily , in addition to adherence to low- cholesterol diet and regular exercise, at least 30 minutes 3 to 4 times a week. Advised patient to make healthy food choices, eat more fruits, vegetables, whole grains, wild caught fish and low-fat dairy. Limit amount of meat and fried or fatty food products, as well as processed foods and fast foods. Follow-up scheduled with repeat fasting lipid panel in 6 months. (4) Generalized anxiety disorder: Code(s): F41.1 - Generalized anxiety disorder Category: Medical Plan: Stable and controlled on escitalopram 5 mg taken once a day (5) Encounter for counseling regarding advance directives: Code(s): Z71.89 - Other specified counseling Plan: Initiated the conversation about Advanced Directives. Advanced Directives help patients prepare for current and future decisions about their medical treatment and place of care. Discussed with patient that it is a process where a patients current condition and prognosis are reviewed, their wishes for information regarding their illness are elicited, and likely medical dilemmas are presented and options discussed. Healthcare proxy form completed. The form can be amended as needed, reviewed yearly and make changes as needed Orders: Orders Lipid Panel 12/23/24 E10.65 - Type 1 diabetes mellitus with hyperglycemia, E78.5 - Hyperlipidemia, unspecified, F41.1 - Generalized anxiety disorder, Z00.01 - Encounter for general adult medical examination with abnormal findings, Z71.89 - Other specified counseling Alanine Aminotransferase 12/23/24 E10.65 - Type 1 diabetes mellitus with hyperglycemia, E78.5 - Hyperlipidemia, unspecified, F41.1 - Generalized anxiety disorder, Z00.01 - Encounter for general adult medical examination with abnormal findings, Z71.89 - Other specified counseling Aspartate Amino Transferase 12/23/24 E10.65 - Type 1 diabetes mellitus with hyperglycemia, E78.5 - Hyperlipidemia, unspecified, F41.1 - Generalized anxiety disorder, Z00.01 - Encounter for general adult medical examination with abnormal findings, Z71.89 - Other specified counseling Medications: Refilled atorvastatin 40 mg PO DAILY 90 tabs 4RF E78.5 - Hyperlipidemia, unspecified
[2024-07-08 14:24] VITALS: BP 110/70; PULSE 64; RESP 16; TEMP 36.7; O2SAT 100; BMI 24.1
--- OUTSIDE RECORDS SUMMARY | 2024-07-08 16:13 | XMS_ITS | Clinical Summary ---
Author Organization [facility] Address [address] [place] [address] Phone Care Team Providers Care Paper Stripper Name Role Phone Niles Goldsmith Primary Care Provider [phone] Immunizations Immunization Administration Dates Next Due DTP [...] age to complete this topic Care Teams Paper Stripper Relationship Specialty Start Date End Date Niles Goldsmith [address] [place] [address] PCP - General 11/02/16
--- OUTSIDE RECORDS SUMMARY | 2024-07-08 16:13 | XMS_ITS | Encounter Summary ---
Author Organization [facility] Address [address] [place] [address] Phone Care Team Providers Care Ager Operator Name Role Phone Niles Goldsmith Primary Care Provider [phone] Encounter Details Date Type Department Care Team (Late st Contact Info) Description 11/13/2010 [place]ation [facility] [place] [address] [place], [place] [phone] Family Medicine, Physician [address] [place] [address] Social History Tobacco Use Types Packs/Day Years [...] on filedocumented in this encounter Care Teams Ager Operator Relationship Specialty Start Date End Date Niles Goldsmith [address] [place] [address] PCP - General 11/02/16 documented as of this encounter
--- OUTSIDE RECORDS SUMMARY | 2024-07-08 16:13 | XMS_ITS | Encounter Summary ---
Author Organization [facility] Address [address] [place] [address] Phone Care Team Providers Care Hand Dry Cleaner Name Role Phone Niles Goldsmith Primary Care Provider [phone] Encounter Details Date Type Department Care Team (Late st Contact Info) Description 11/13/2010 Documentation [facility] [place] [address] [place], [place] [phone] Family Medicine, Physician [address] [place] [address] Social History Tobacco Use Types Packs/Day Years [...] on filedocumented in this encounter Care Teams Hand Dry Cleaner Relationship Specialty Start Date End Date Niles Goldsmith [address] [place] [address] PCP - General 11/02/16 documented as of this encounter
--- OUTSIDE RECORDS SUMMARY | 2024-07-08 16:13 | XMS_ITS | Encounter Summary ---
Author Organization [facility] Address [address] [place] [address] Phone Care Team Providers Care Painter Supervisor Name Role Phone Niles Goldsmith Primary Care Provider [phone] Encounter Details Date Type Department Care Team (Late st Contact Info) Description 11/08/2016 Conversion Encounter [facility] [address] [place] [address] Social History Tobacco Use Types Packs/Day Years [...] on filedocumented in this encounter Care Teams Painter Supervisor Relationship Specialty Start Date End Date Niles Goldsmith [address] [place] [address] PCP - General 11/02/16 documented as of this encounter
--- OUTSIDE RECORDS SUMMARY | 2024-07-08 16:13 | XMS_ITS | Encounter Summary ---
Author Organization [facility] Address [address] [place] [address] Phone Care Team Providers Care Gun Number Name Role Phone Niles Goldsmith Primary Care Provider [phone] Encounter Details Date Type Department Care Team (Late st Contact Info) Description 11/14/2010 Documentation [facility] [place] [address] [place], [place] [phone] Family Medicine, Physician [address] [place] [address] Social History Tobacco Use Types Packs/Day Years [...] on filedocumented in this encounter Care Teams Gun Number Relationship Specialty Start Date End Date Niles Goldsmith [address] [place] [address] PCP - General 11/02/16 documented as of this encounter
--- OUTSIDE RECORDS SUMMARY | 2024-07-08 16:13 | XMS_ITS | Encounter Summary ---
Author Organization [facility] Address [address] [place] [address] Phone Care Team Providers Care Petroleum Laboratory Technician Name Role Phone Niles Goldsmith Primary Care Provider Encounter Details Date Type Department Care Team (Late st Contact Info) Description 11/13/2010 Documentation [facility] [place] Family Medicine [address] [place], [place] [phone] Family Medicine, Physician [address] [place] [address] Social History Tobacco Use Types Packs/Day Years [...] on filedocumented in this encounter Care Teams Petroleum Laboratory Technician Relationship Specialty Start Date End Date Niles Goldsmith [address] [place] [address] PCP - General 11/02/16 documented as of this encounter
== END 2024-07-08 15:14 | disposition home or self-care (01) ==
LOC: HO.HMCC 13:36
PROVIDERS: PCP Internal Medicine; Visit Provider Internal Medicine
DX: Z00.01 Encounter for general adult medical examination with abnormal findings (principal); E10.65 Type 1 diabetes mellitus with hyperglycemia; E78.5 Hyperlipidemia, unspecified; F41.1 Generalized anxiety disorder; Z71.89 Other specified counseling

== ENCOUNTER → 2024-07-08 13:35 | Outpatient (BNVA) | payer OTHER, SELFPAY | PROVIDERS: PCP Internal Medicine; Visit Provider Internal Medicine | DX: Z00.01 Encounter for general adult medical examination with abnormal findings (principal); Z71.89 Other specified counseling; E10.65 Type 1 diabetes mellitus with hyperglycemia; E78.5 Hyperlipidemia, unspecified; F41.1 Generalized anxiety disorder; Z79.4 Long term (current) use of insulin; Z79.899 Other long term (current) drug therapy | CPT/HCPCS: 96127; 99395 ==

== ENCOUNTER 2024-08-18 15:38 | Outpatient (AMB) | payer OTHER, SELFPAY ==
--- NOTE | 2024-08-18 08:27 | A.OFFVIS_ITS ---
Vital Signs 08/18/24 15:45 Height 5 ft 10 in Weight 163 lb 2.273 oz BMI 23.4 BP 128/68 Blood Pressure Location Rt brachial Position Sitting Pulse 87 Pulse Source Pulse Oximeter Pulse Oximetry (%) 98 Oxygen Delivery Method Room Air Intake Visit Reasons: T1DM Intake Note: Patient presents today for a follow-up on Type 1 Diabetes Mellitus: Last Diabetic eye exam was on: 04/10/2024 at [facility] Last Podiatry exam was on: Patient does not see a Philosophy And Religion Instructor Most recent HbA1c: 8.6%, 08/18/2024 Random Glucose- 183 mg/dL, Today Allergies N.K.D.A. Allergy (Unknown, Uncoded 07/08/24 14:56) none HPI Comments Details: Patient is 33 yo male with DM type 1 diagnosed on 07/13/17.? Hemoglobin A1c 08/18/2024 %, 05/14/2024 7.9% He was last seen 05/14/24 at which time he was advised to start using the bolus calculator on his phone. He is considering going on a pump but would like to wait until there is less going on in his life to make this change. Type 1 diabetes confirmed 2021 insulin antibody titer 320, SIDNEY greater than 250 Previously on Lantus insulin but was unable to obtain A1c target on Lantus Micro and macrovascular complications: no? complications Diabetes medications: Tresiba 12-14 units Humalog, I:C 18,? sensitivity 70, target 130 humalog when self calculating uses 1:20 for ease of calculation range he is estimating amounts 3-4 units small meal avg 10 units 16 units larger meal and higher sugars Dexcom average glucose: [ ] 14 day continuous glucose monitor report reviewed Glucose Managment indicator [ ] % Days with CGM data [ ] % TIme in ranges: [ ] % very high (above 250) [ ] % high ?(181-250) [ ] % in range ?(70-180] [ ] % low (69-55) [ ] % ?very low (below 54) [ ] Standard Deviation Interpretation [ ] Eye exam:? last exam has appt scheduled in July 2024 HLD: on statin due for lipid profile No neuropathy:Symptoms reported: denies? numbness, tingling, cramping in lower extremities No nephropathy: 03/16 microalbumin 29 06/02/24 eGFR >60 Hypoglycemia: some in the am when he takes extra Tresiba? Feels shaky and weak when they occur. Treats with juice and crackers.? ? Hyperglycemia: denies urinary frequency, denies nocturia,denies? polydypsia Has HLD on statin ldl 06/02/24 99 Diet: Exercise: Diabetes education; none recent [facility] Medical History History of anemia Dyslipidemia Type 1 diabetes mellitus with hyperglycemia Surgical History No history of previous surgery Family History Father Diabetes Social History Household Members: Family Housing: House Patient Tobacco Use Status: Never used Tobacco e-Cigarette/Vaping Use: Never Used Current occupational status: other Current occupation: student Cognitive needs: No Hearing needs: No Vision needs: Yes Physical Exam Vital Signs: BMI result Body Mass Index 23.4 Results AMB Hemoglobin A1c AMB Hemoglobin A1c 8.6 % Last Edit by AILIN Yang on 08/18/24 16:02 Assessment & Plan Assessment & Plan Orders: Orders AMB Hemoglobin A1c Today E10.65 - Type 1 diabetes mellitus with hyperglycemia Coding
[2024-08-18 15:45] VITALS: BP 128/68; PULSE 87; O2SAT 98; BMI 23.4
[2024-08-18 15:54] LABS: Glucose, Whole Blood 183 mg/dL (60-115)
== END 2024-08-18 16:33 | disposition home or self-care (01) ==
LOC: HO.ENCR 15:39
PROVIDERS: PCP Internal Medicine; Visit Provider Nurse Practitioner Adult Health
DX: E10.65 Type 1 diabetes mellitus with hyperglycemia (principal)

== ENCOUNTER → 2024-08-18 15:38 | Outpatient (BNVA) | payer OTHER, SELFPAY | PROVIDERS: PCP Internal Medicine; Visit Provider Nurse Practitioner Adult Health | DX: E10.65 Type 1 diabetes mellitus with hyperglycemia (principal); Z79.4 Long term (current) use of insulin | CPT/HCPCS: 82947; 83036; 99212 ==

== ENCOUNTER 2024-12-31 10:07 | Outpatient (AMB) | payer OTHER, SELFPAY ==
[2024-12-31 10:13] VITALS: BP 116/64; PULSE 58; O2SAT 98; BMI 24.0
--- NOTE | 2024-12-31 10:13 | A.OFFVIS_ITS ---
Vital Signs 12/31/24 10:13 Height 5 ft 10 in Weight 167 lb 1.766 oz BMI 24.0 BP 116/64 Blood Pressure Location Rt brachial Position Sitting Pulse 58 Pulse Source Pulse Oximeter Pulse Oximetry (%) 98 Oxygen Delivery Method Room Air Intake Visit Reasons: T1DM Intake Note: Patient present today to follow up on Type 1 Diabetes Mellitus.? Last Diabetic Eye exam: 04/10/2024 at [facility] Last Podiatry Visit: Patient does not see a Environmental Compliance Inspector Random Glucose: 189mg/dl Hgb A1C: 7.4 Transonic Engineer Required: No Accompanied by: Self / Same As Patient Allergies N.K.D.A. Allergy (Unknown, Uncoded 12/31/24 10:17) none Medication List - Last Reconciled 12/31/24 by Niles Ruvalcaba MD atorvastatin 40 mg PO DAILY blood sugar diagnostic (FreeStyle Lite Strips) 3-4 times a day escitalopram oxalate 5 mg PO DAILY glucagon 3 mg/actuation (Baqsimi) 3 mg intranasal ONCE 30 days glucose (Dex4 Glucose) 12 grams (3 x 4 gram) PO Q15M PRN insulin degludec (Tresiba FlexTouch U-200 insulin) 11 units (0.055 mL) subcut DAILY 30 days insulin lispro Inject up to 15 units subcutaneously 4 times a day before meal/bed; 90 days lancets (FreeStyle Lancets) 5 times a day loratadine (Allergy Relief (loratadine)) 10 mg PO DAILY HPI Comments Details: Patient is 34 yo male with DM type 1 diagnosed on 07/13/17.? He was last seen 08/18 by Jaylyn Bowman NP Type 1 diabetes confirmed 2021 insulin antibody titer 320, SIDNEY greater than 250 Previously on Lantus insulin but was unable to obtain A1c target on Lantus Micro and macrovascular complications: no? complications Diabetes medications: Tresiba 14 units Humalog, I:C 18,? sensitivity 70, target 130 humalog when self calculating uses 1:20 for ease of calculation range he is estimating amounts 3-4 units small meal avg 10 units 16 units larger meal and higher sugars He does cover his snacks with insulin Dexcom average glucose: 169 14 day continuous glucose monitor report reviewed Glucose Managment indicator 7.3 % TIme in ranges: 11 % very high (above 250) 31 % high ?(181-250) 55 % in range ?(70-180] 3 % low (69-55) Less than 1 % ?very low (below 54) Interpretation some overnight lows. There was increase in point of cares throughout the day with a drop in blood sugar post-dinner Eye exam:? last exam 03/2024 [facility] HLD: on statin ldl 99 on 06/02/24 No neuropathy:Symptoms reported: denies? numbness, tingling, cramping in lower extremities No nephropathy: 03/16 microalbumin 29 06/02/24 eGFR >60 Hypoglycemia: some in the am when he takes extra Tresiba? Feels shaky and weak when they occur. Treats with juice and crackers.? ? Hyperglycemia: denies urinary frequency, denies nocturia,denies? polydypsia Has HLD on statin ldl 06/02/24 99 Diet:balanced diet Exercise: regularly Diabetes education; none recent [facility] Medical History History of anemia Dyslipidemia Type 1 diabetes mellitus with hyperglycemia Surgical History No history of previous surgery Family History Father Diabetes Social History Household Members: Family Housing: House Patient Tobacco Use Status: Never used Tobacco e-Cigarette/Vaping Use: Never Used Current occupational status: other Current occupation: student Cognitive needs: No Hearing needs: No Vision needs: Yes Physical Exam Vital Signs: Last Vital Signs Pulse 58 12/31/24 10:13 BP 116/64 12/31/24 10:13 Pulse Ox 98 12/31/24 10:13 Oxygen Delivery Method Room Air 12/31/24 10:13 BMI result Body Mass Index 24.0 Const Other: Absence of Cushingoid features. Absence of acromegalic features. Neck exam reveals nl size thyroid about 15 gms. No thyroid nodules palpable. Heart S1 S2, Reg R/R. No M/R G. Skin exam reveals absence of vitiligo or acanthosis nigricans. Visual exam of foot performed. No ulcerations or open lesions. No inter digit maceration or fissuring. No onychomycosis, no callouses. Sensation intact to monofilament exam. Vibratory sensation is normal with 128 Hz tuning fork. Results AMB Hemoglobin A1c AMB Hemoglobin A1c 7.4 % Last Edit by Kaley Woody CMA on 12/31/24 10:33 Results Reviewed Results Reviewed: Laboratory Last Values Glucose (Clinic) 189 mg/dL (60-115) H 12/31/24 10:22 Hgb A1c (Clinic) 7.4 % (4.0-6.0) H 12/31/24 10:27 Assessment & Plan Assessment & Plan (1) Type 1 diabetes mellitus with hyperglycemia: Code(s): E10.65 - Type 1 diabetes mellitus with hyperglycemia Category: Medical Plan: This is a 32-year-old black male with a history of type 1 diabetes with fair glycemic control on basal-bolus insulin with no known microvascular or macrovascular complications. He is having some overnight hypoglycemia Plan is to talk to the patient about potentially switching to insulin pump like Omnipod 5 otr Tandem T-Slim X2 with control IQ.or Ilet device. Will follow up with chief compressor station engineer to discuss pump initiation For now, we will decrease Tresiba to 12 units and to 10 units if continued hypoglycemia in the a.m.. Also told patient to possibly tighten dinner insulin: Carbohydrate 1:17 if continued spikes after dinner Orders: Orders AMB Hemoglobin A1c Today E10.65 - Type 1 diabetes mellitus with hyperglycemia Coding Level of Care Code Est Pt Level 4 (81350) Complex EM visit Add On G2211 Diagnoses Type 1 diabetes mellitus with hyperglycemia E10.65
[2024-12-31 10:27] LABS: Glucose, Whole Blood 189 mg/dL (60-115)
== END 2024-12-31 11:01 | disposition home or self-care (01) ==
LOC: HO.ENCR 10:08
PROVIDERS: PCP Internal Medicine; Visit Provider Internal Medicine Endocrinology, Diabetes & Metabolism
DX: E10.65 Type 1 diabetes mellitus with hyperglycemia (principal)
CPT/HCPCS: 99214

== ENCOUNTER → 2024-12-31 10:07 | Outpatient (BNVA) | payer OTHER, SELFPAY | PROVIDERS: PCP Internal Medicine; Visit Provider Internal Medicine Endocrinology, Diabetes & Metabolism | DX: E10.65 Type 1 diabetes mellitus with hyperglycemia (principal); Z79.4 Long term (current) use of insulin | CPT/HCPCS: 82947; 83036; 99212 ==

== ENCOUNTER 2025-01-07 15:37 | Outpatient (AMB) | payer OTHER, SELFPAY ==
[2025-01-07 15:44] VITALS: BP 114/80; PULSE 58; TEMP 37; O2SAT 98; BMI 23.2
--- NOTE | 2025-01-07 15:44 | MHC.PC.OV ---
Vital Signs 01/07/25 15:44 Height 5 ft 10 in Weight 162 lb BMI 23.2 BP 114/80 Blood Pressure Location Rt brachial Position Sitting Pulse 58 Pulse Source Pulse Oximeter Temp 98.6 F Temp Source Oral Pulse Oximetry (%) 98 Oxygen Delivery Method Room Air Intake Visit Reasons: 6m follow up Intake Note: Pt is here today wants to discuss any testing for non-compaction ventricular (father just recent) Allergies N.K.D.A. Allergy (Unknown, Uncoded 01/10/25 02:53) none Medication List - Last Reconciled 01/10/25 by Demi Corona MD atorvastatin 40 mg PO DAILY blood sugar diagnostic (FreeStyle Lite Strips) 3-4 times a day escitalopram oxalate 5 mg PO DAILY glucagon 3 mg/actuation (Baqsimi) 3 mg intranasal ONCE 30 days glucose (Dex4 Glucose) 12 grams (3 x 4 gram) PO Q15M PRN insulin degludec (Tresiba FlexTouch U-200 insulin) 11 units (0.055 mL) subcut DAILY 30 days insulin lispro Inject up to 15 units subcutaneously 4 times a day before meal/bed; 90 days lancets (FreeStyle Lancets) 5 times a day loratadine (Allergy Relief (loratadine)) 10 mg PO DAILY Tobacco use date assessed: 01/07/25 Dental Screening Dental Screen Date: 01/07/25 Did you have a dental visit in the last 12 months?: No Did you have a dental problem in the last 6 months where you did not have access to dental care?: No Was dental information given to patient?: Patient has dentist HPI 6m follow up HPI Details The patient is a 34-year-old male with history of dyslipidemia, type 1 diabetes mellitus, generalized anxiety disorder, here today for follow-up. Patient states as he has father recently and was diagnosed to have left ventricular noncompaction, a genetic cardiomyopathy . This condition was identified during a family history review, and the patient has been advised to consult with a occ therapist for further evaluation. Denies having any chest, no shortness of breath at rest or on exertion and no lightheadedness. The patient has type 1 diabetes mellitus, with recent HbA1c levels improving from 8.6% to 7.4%, although the target is below 7%. The patient is considering transitioning to an insulin pump to better manage his diabetes. He is currently followed by his endocrine always The patient also has a history of anemia, with previous lab results indicating low white blood cell count and slight anemia. The cause of the anemia is unclear, and further investigation is planned. [facility] Medical History (Updated 01/07/25 @ 16:06 by Demi Corona MD) Family history of left ventricular non-compaction (LVNC) History of anemia Dyslipidemia Type 1 diabetes mellitus with hyperglycemia Surgical History No history of previous surgery Family History Father Diabetes Left ventricular noncompaction cardiomyopathy Social History Household Members: Family Housing: House Patient Tobacco Use Status: Never used Tobacco e-Cigarette/Vaping Use: Never Used Current occupational status: other Current occupation: student Cognitive needs: No Hearing needs: No Vision needs: Yes Questionnaire PHQ-9 Over the last 2 weeks, how often have you been bothered by any of the following problems? 1. Little interest or pleasure in doing things: not at all 2. Feeling down, depressed, or hopeless: not at all 3. Trouble falling or staying asleep, or sleeping too much: not at all 4. Feeling tired or having little energy: several days 5. Poor appetite or overeating: not at all 6. Feeling bad about yourself - or that you are a failure or have let yourself or your family down: not at all 7. Trouble concentrating on things, such as reading the newspaper or watching television: not at all 8. Moving or speaking so slowly that other people could have noticed. Or the opposite - being so fidgety or restless that you have been moving around a lot more than usual: not at all 9. Thoughts that you would be better off or of hurting yourself in some way: not at all Total score: 1 Depression Screening Interpretation: Negative Depression Screening Done: Yes Source: Developed by Drs. Niles Ambrose, Chely Plascencia, Issac Castillo and colleagues, with an educational veronica from [employer]. Thrive Questionnaire Date Thrive assessed: 07/08/24 I am a: Patient What is your living situation today?: I have a steady place to live Within the past 12 months, did the food you bought not last and you didn't have the money to get more?: Never true Within the past 12 months, did you worry whether your food would run out before you got money to buy more?: Never true Do you have trouble paying for medicines?: No Do you have trouble getting transportation to medical appointments?: No Do you have trouble paying your heating and electricity bill?: No Do you have trouble taking care of your child, family member or friend?: No Do you have trouble with day-to-day activities such as bathing, preparing meals, shopping, managing finances, etc.?: No Are you currently unemployed and looking for a job?: No Are you interested in more education?: I choose not to answer this question Please select the resources that you would like help with: None Currently or been in a relationship where the following occur: I choose not to answer THRIVE Score: 0 AUDIT C Alcohol Use Questionnaire (AUDIT-C) 1. How often do you have a drink containing alcohol?: Never Total Score: 0 SIDNEY-7 AMB Questionnaire SIDNEY-7 Date SIDNEY - 7 assessed: 04/24/24 Feeling nervous, anxious, or on edge: 0 = Not at all Not being able to stop or control worryin = Not at all Worrying too much about different things: 0 = Not at all Trouble relaxin = Several days Being so restless that it is hard to sit still: 0 = Not at all Becoming easily annoyed or irritable: 0 = Not at all Feeling afraid as if something awful might happen: 0 = Not at all Total SIDNEY-7 score (0-4 normal; 5-9 mild; 10-14 moderate; 15-21 severe): 1 Source: Developed by Drs. Niles Ambrose, Chely Plascencia, Issac Castillo and colleagues, with an educational veronica from [employer]. Review of Systems Const Denies fatigue and Denies headache(s) Eyes Denies change in vision ENT Denies dizziness, Denies dry mouth, Denies headache(s) and Denies nasal congestion Card Denies chest pain, Denies irregular heart rhythm and Denies palpitations Resp Denies cough GI Denies constipation, Denies heartburn and Denies diarrhea Denies dysuria and Denies urinary frequency Musc Denies muscle cramps, Denies muscle weakness, Denies numbness and Denies tingling Skin/Breast Denies lesions and Denies rash Neuro Denies burning sensations, Denies dizziness, Denies headache(s), Denies numbness, Denies tingling and Denies paresthesias Psych Reports no additional complaints Endo Denies fatigue, Denies polydipsia, Denies polyuria and Denies palpitations Quincy/Lymph Denies easy bruising Aller/Immun Reports no additional complaints Physical exam (Primary Care) Vital Signs: Last Vital Signs Temp 98.6 F 01/07/25 15:44 Pulse 58 01/07/25 15:44 BP 114/80 01/07/25 15:44 Pulse Ox 98 01/07/25 15:44 Oxygen Delivery Method Room Air 01/07/25 15:44 BMI result Body Mass Index 23.2 Tobacco/Smoking Status: Tobacco use Status Tobacco use date assessed 01/07/25 01/07/25 15:46 Patient Tobacco Use Status Never used Tobacco 01/07/25 15:46 e-Cigarette/Vaping Use Never Used 01/07/25 15:46 PHQ-9: PHQ-9 Score PHQ-9: Total score 1 01/08/25 16:12 Depression Screening Interpretation: Negative Thrive Assessment: Date of Thrive Assessment Date Thrive assessed 07/08/24 01/07/25 15:46 Currently or been in a relationship where the following occur: I choose not to answer Const General: no acute distress and alert Orientation/consciousness: patient oriented x3 HENMT Ears: external ears normal General nose exam: Normal external nose present Mouth: Normal oral and palatal mucosa present and moist mucous membranes Eyes General: appearance normal, both eyes and all related structures Neck Neck: Yes full ROM, Yes no lymphadenopathy and Yes supple Resp Effort & Inspection: normal respiratory effort and able to speak in complete sentences Auscultation: clear to auscultation bilaterally Cardio Rate: regular rate Rhythm: regular rhythm Heart sounds: S1 normal heart sound present and S2 normal heart sound present GI Palpation (GI): Soft to palpation, nontender and no masses Auscultation: normal bowel sounds General: Yes no CVA tenderness Male General Exam: Yes normal external exam Back/Spine/Pelvis Back: no CVA tenderness and No back tenderness Skin General skin exam: no rashes or lesions noted Neuro General: patient oriented x3, gait normal, tone normal, moves all extremities, Normal light touch and pain sensation and no focal motor deficits Cranial nerves: Yes CN's II-XII intact bilaterally Cognition (Neuro): normal cognition Extrem General: Yes full ROM, Yes no joint enlargement, Yes no clubbing, cyanosis or edema and Yes no calf tenderness Psych Appearance: grossly normal and well kempt Mental Status: mental status grossly normal Speech and movement: Normal speech and movement present Affect: normal affect Coding Level of Care Code Est Pt Level 4 (50817) Complex EM visit Add On G2211 Diagnoses Anemia, unspecified type D64.9 Anemia type: unspecified type Leukopenia, unspecified type D72.819 Leukopenia type: unspecified Type 1 diabetes mellitus with hyperglycemia E10.65 Family history of left ventricular non-compaction (LVNC) Z82.49 Dyslipidemia E78.5 Assessment & Plan Assessment & Plan (1) Anemia: Code(s): D64.9 - Anemia, unspecified Qualifiers: Anemia type: unspecified type Qualified Code(s): D64.9 - Anemia, unspecified Plan: CBC ordered today. (2) Leukopenia: Code(s): D72.819 - Decreased white blood cell count, unspecified Qualifiers: Leukopenia type: unspecified Qualified Code(s): D72.819 - Decreased white blood cell count, unspecified Plan: Repeat CBC with differential ordered (3) Type 1 diabetes mellitus with hyperglycemia: Code(s): E10.65 - Type 1 diabetes mellitus with hyperglycemia Category: Medical Plan: Currently followed by endocrine clinic, on Tresiba and insulin lispro with meals (4) Family history of left ventricular non-compaction (LVNC): Code(s): Z82.49 - Family history of ischemic heart disease and other diseases of the circulatory system Category: Medical Plan: Ordered transthoracic echocardiogram complete, Cardiology consult ordered (5) Dyslipidemia: Code(s): E78.5 - Hyperlipidemia, unspecified Category: Medical Plan: Currently on atorvastatin 40 mg daily. Patient also reminded that his fasting lipid panel done together with liver enzymes Orders: Orders CA echo transthoracic complete 01/07/25 E10.65 - Type 1 diabetes mellitus with hyperglycemia, Z82.49 - Family history of ischemic heart disease and other diseases of the circulatory system Complete Blood Count Auto Diff 01/07/25 D64.9 - Anemia, unspecified, D72.819 - Decreased white blood cell count, unspecified Referrals Cardiology Referral E10.65 - Type 1 diabetes mellitus with hyperglycemia, Z82.49 - Family history of ischemic heart disease and other diseases of the circulatory system
--- OUTSIDE RECORDS SUMMARY | 2025-01-07 19:23 | XMS_ITS | Encounter Summary ---
Author Organization [facility] Address [address] [place] [address] Phone Care Team Providers Care Home Energy Inspector Name Role Phone Niles Goldsmith Primary Care Provider [phone] Encounter Details Date Type Department Care Team (Late st Contact Info) Description 11/08/[address] [facility] [address] [place] [address] Social History Tobacco Use Types Packs/Day Years [...] on filedocumented in this encounter Care Teams Home Energy Inspector Relationship Specialty Start Date End Date Niles Goldsmith [address] [place] [address] PCP - General 11/02/16 documented as of this encounter
--- OUTSIDE RECORDS SUMMARY | 2025-01-07 19:23 | XMS_ITS | Encounter Summary ---
Author Organization [facility] Address [address] [place] [address] Phone Care Team Providers Care Jigsawyer Name Role Phone Niles Goldsmith Primary Care Provider [phone] Encounter Details Date Type Department Care Team (Late st Contact Info) Description 11/13/2010 Documentation [facility] Family Medicine [address] [place], [place] [id number] Family Medicine, Physician [address] [place] [address] Social History Tobacco Use Types Packs/Day Years [...] on filedocumented in this encounter Care Teams Jigsawyer Relationship Specialty Start Date End Date Niles Goldsmith [address] [place] [address] PCP - General 11/02/16 documented as of this encounter
--- OUTSIDE RECORDS SUMMARY | 2025-01-07 19:23 | XMS_ITS | Clinical Summary ---
Author Organization [facility] Address [address] [place] [address] Phone Care Team Providers Care Color Maker Dyer Name Role Phone Niles Goldsmith Primary Care Provider [phone] Immunizations Immunization Administration Dates Next Due DTP [...] AM EDT Pulse - - Temperature 35.3 C (95.5 F) 10/12/2010 12:00 AM EDT Respiratory Rate - - Oxygen Saturation - - Inhaled Oxygen Concentration - - Weight 59.9 kg (132 lb) 11/10/2010 12:00 AM EDT Height 175.3 cm (5' 9 ) 11/10/2010 12:00 AM EDT Body Mass Index 19.49 11/10/2010 12:00 AM EDT Plan of Treatment Health Maintenance Due Date Last Done Comments Varicella Vaccines (1 of 2 - 13+ 2-dose series) 12/08/2010 HPV Vaccines (1 - 3-dose SCDM series) 2017 DTaP,Tdap,and Td Vaccines (7 - Td or Tdap) 07/15/2018 07/15/2008, 11/12/2002, 11/11/1995, Additional history exists Influenza Vaccines (#1) 2024 11/10/2010 COVID-19 Vaccine ( season) 2024 HIB Vaccines Completed 06/30/1992, 06/1991, 04/27/1991, Additional [...] age to complete this topic Care Teams Color Maker Dyer Relationship Specialty Start Date End Date Niles Goldsmith [address] [place] [address] PCP - General 11/02/16
--- OUTSIDE RECORDS SUMMARY | 2025-01-07 19:23 | XMS_ITS | Encounter Summary ---
Author Organization [facility] Address [address] [place] [phone] Phone Care Team Providers Care Functional Director Name Role Phone Niles Goldsmith Primary Care Provider [phone] Encounter Details Date Type Department Care Team (Late st Contact Info) Description 11/13/2010 Documentation [facility] Family Medicine [address] [place], [place] [phone] Family Medicine, Physician [address] [place] [address] Social History Tobacco Use Types Packs/Day Years [...] on filedocumented in this encounter Care Teams Functional Director Relationship Specialty Start Date End Date Niles Goldsmith [address] [place] [address] PCP - General 11/02/16 documented as of this encounter
--- OUTSIDE RECORDS SUMMARY | 2025-01-07 19:23 | XMS_ITS | Encounter Summary ---
Author Organization [facility] Address [address] [place] [address] Phone Care Team Providers Care Nutritional Services Host Name Role Phone Niles Goldsmith Primary Care Provider [phone] Encounter Details Date Type Department Care Team (Late st Contact Info) Description 11/14/2010 Documentation [facility] Family Medicine [address] [place], [place] [phone] Family Medicine, Physician [address] [place] [address] Social History Tobacco Use Types Packs/Day Years [...] on filedocumented in this encounter Care Teams Nutritional Services Host Relationship Specialty Start Date End Date Niles Goldsmith [address] [place] [address] PCP - General 11/02/16 documented as of this encounter
--- OUTSIDE RECORDS SUMMARY | 2025-01-07 19:23 | XMS_ITS | Encounter Summary ---
Author Organization [facility] Address [address] [place] [phone] Phone Care Team Providers Care Thermal Engineer Name Role Phone Niles Goldsmith Primary Care Provider [phone] Encounter Details Date Type Department Care Team (Late st Contact Info) Description 11/13/2010 Documentation [facility] Family Medicine [address] [place], [place] [phone] Family Medicine, Physician [address] [place] [address] Social History Tobacco Use Types Packs/Day Years [...] on filedocumented in this encounter Care Teams Thermal Engineer Relationship Specialty Start Date End Date Niles Goldsmith [address] [place] [address] PCP - General 11/02/16 documented as of this encounter
== END 2025-01-07 16:08 | disposition home or self-care (01) ==
LOC: HO.HMCC 15:38
PROVIDERS: PCP Internal Medicine; Visit Provider Internal Medicine
DX: D64.9 Anemia, unspecified (principal); D72.819 Decreased white blood cell count, unspecified; E10.65 Type 1 diabetes mellitus with hyperglycemia; Z82.49 Family history of ischemic heart disease and other diseases of the circulatory system; E78.5 Hyperlipidemia, unspecified

== ENCOUNTER → 2025-01-07 15:37 | Outpatient (BNVA) | payer OTHER, SELFPAY | PROVIDERS: PCP Internal Medicine; Visit Provider Internal Medicine | DX: E10.65 Type 1 diabetes mellitus with hyperglycemia (principal); F41.1 Generalized anxiety disorder; D64.9 Anemia, unspecified; D72.819 Decreased white blood cell count, unspecified; E78.5 Hyperlipidemia, unspecified; Z79.4 Long term (current) use of insulin; Z82.49 Family history of ischemic heart disease and other diseases of the circulatory system | CPT/HCPCS: 99212 ==

== ENCOUNTER 2025-01-11 13:44 | Outpatient (REF) | payer OTHER, SELFPAY ==
[2025-01-11 15:56] LABS: MANUAL DIFF FLAG NO
[2025-01-11 16:16] LABS: Hematocrit 43.2 % (42.0-52.0); Hemoglobin 14.0 g/dl (14.0-18.0); Imm Gran Abs Auto 0.01 X10*3/uL (0.00-0.03); Imm Gran Pct Auto 0.3 % (0.0-0.4); Lymphocytes Absolute Auto 1.6 X10*3/uL (1.2-4.9); Mean Corpuscular HGB Conc 32.4 g/dl (31.0-36.0); Mean Corpuscular Hemoglobin 28.2 pg (27.0-33.0); Mean Corpuscular Volume 86.9 fL (80.0-98.0); NRBC Abs Auto 0.000 X10*3/uL (0.0-0.012); NRBC Pct Auto 0.0 /100WBC (0.0-0.2); Platelet Count 266 X10*3/uL (160-400); Red Blood Count 4.97 X10*6/uL (4.60-5.80); White Blood Count 3.7 X10*3/uL (4.8-10.8)
[2025-01-11 16:52] LABS: Alanine Aminotransferase 26 U/L (0-40); Aspartate Amino Transferase 30 U/L (5-37); Cholesterol 162 mg/dL (<200); HDL Cholesterol 59 mg/dL (>40); Triglycerides 42 mg/dL (<150)
--- OUTSIDE RECORDS SUMMARY | 2025-01-11 17:02 | XMS_ITS | Encounter Summary ---
Author Organization [facility] Address [address] [place] [phone] Phone Care Team Providers Care Machine Worker Name Role Phone Niles Goldsmith Primary Care Provider [phone] Encounter Details Date Type Department Care Team (Late st Contact Info) Description 11/08/2016 Conversion Encounter [facility] [address] [place] [address] Social History Tobacco Use Types Packs/Day Years [...] on filedocumented in this encounter Care Teams Machine Worker Relationship Specialty Start Date End Date Niles Goldsmith [address] [place] [address] PCP - General 11/02/16 documented as of this encounter
--- OUTSIDE RECORDS SUMMARY | 2025-01-11 17:02 | XMS_ITS | Clinical Summary ---
Author Organization [facility] Address [address] [place] [phone] Phone Care Team Providers Care Electric Brain Wave Equipment Mechanic Name Role Phone Niles Goldsmith Primary Care Provider [phone] Immunizations Immunization Administration Dates Next Due DTP [...] age to complete this topic Care Teams Electric Brain Wave Equipment Mechanic Relationship Specialty Start Date End Date Niles Goldsmith [address] [place] [address] PCP - General 11/02/16
--- OUTSIDE RECORDS SUMMARY | 2025-01-11 17:02 | XMS_ITS | Encounter Summary ---
Author Organization [facility] Address [address] [place] [phone] Phone Care Team Providers Care Map Maker Name Role Phone Niles Goldsmith Primary Care Provider [phone] Encounter Details Date Type Department Care Team (Late st Contact Info) Description 11/13/2010 Documentation [facility] [place] Family Medicine [address] [place], [place] [phone] Family Medicine, Physician [address] [place] [address] Social History Tobacco Use Types Packs/Day Years [...] on filedocumented in this encounter Care Teams Map Maker Relationship Specialty Start Date End Date Niles Goldsmith [address] [place] [address] PCP - General 11/02/16 documented as of this encounter
--- OUTSIDE RECORDS SUMMARY | 2025-01-11 17:02 | XMS_ITS | Encounter Summary ---
Author Organization [facility] Address [address] [place] [address] Phone Care Team Providers Care Buggy Man Name Role Phone Niles Goldsmith Primary Care Provider [phone] Encounter Details Date Type Department Care Team (Late st Contact Info) Description 11/14/2010 Documentation [facility] [place] Family Medicine [address] [place], [place] [id number] Family Medicine, Physician [address] [place] [address] Social History Tobacco Use Types Packs/Day Years [...] on filedocumented in this encounter Care Teams Buggy Man Relationship Specialty Start Date End Date Niles Goldsmith [address] [place] [address] PCP - General 11/02/16 documented as of this encounter
--- OUTSIDE RECORDS SUMMARY | 2025-01-11 17:02 | XMS_ITS | Encounter Summary ---
Author Organization [facility] Address [address] [place] [id number] Phone Care Team Providers Care Master Of Ceremonies Name Role Phone Niles Goldsmith Primary Care Provider [phone] Encounter Details Date Type Department Care Team (Late st Contact Info) Description 11/13/2010 Documentation [facility] [place] Family Medicine [address] [place], [place] [phone] Family Medicine, Physician [address] [place] [address] Social History Tobacco Use Types Packs/Day Years [...] on filedocumented in this encounter Care Teams Master Of Ceremonies Relationship Specialty Start Date End Date Niles Goldsmith [address] [place] [address] PCP - General 11/02/16 documented as of this encounter
--- OUTSIDE RECORDS SUMMARY | 2025-01-11 17:02 | XMS_ITS | Encounter Summary ---
Author Organization [facility] Address [address] [place] [phone] Phone Care Team Providers Care Otr Tanker Truck Driver Name Role Phone Niles Goldsmith Primary Care Provider [phone] Encounter Details Date Type Department Care Team (Late st Contact Info) Description 11/13/2010 Documentation [facility] [place] [address] [place], [place] [phone] Family Medicine, Physician [address] [place] [address] Social History Tobacco Use Types Packs/Day Years [...] on filedocumented in this encounter Care Teams Otr Tanker Truck Driver Relationship Specialty Start Date End Date Niles Goldsmith [address] [place] [address] PCP - General 11/02/16 documented as of this encounter
== END 2025-01-11 13:45 | disposition home or self-care (01) ==
LOC: HO.HMGCLDS 13:44
PROVIDERS: PCP Internal Medicine; Visit Provider Internal Medicine
DX: Z00.01 Encounter for general adult medical examination with abnormal findings (principal); E10.65 Type 1 diabetes mellitus with hyperglycemia; E78.5 Hyperlipidemia, unspecified; F41.1 Generalized anxiety disorder; D72.819 Decreased white blood cell count, unspecified; D64.9 Anemia, unspecified; I10 Essential (primary) hypertension; Z71.89 Other specified counseling
CPT/HCPCS: 36415; 80061; 84450; 84460; 85025